=== PATIENT | male | born 1995 | race Two or more races ===

== ENCOUNTER 2023-06-29 00:44 | Inpatient (IN) | payer MEDICAID, OTHER ==
[~2023-06-29] VITALS: Ht 175.3 cm; Wt 81.9 kg
[2023-06-29 01:33] LABS: Basophils # (auto) 0 10 ^3/uL (0-0.2); Eosinophils # (auto) 0 10 ^3/uL (0-0.8); Nucleated Red Blood Cells % 0.1 %; Red Cell Distribution Width 13.3 % (11.8-14.3)
[2023-06-29 01:34] LABS: Basophils % (auto) 0.1 % (0.0-2.0); Hematocrit 52.3 % (41.0-53.0); Lymphocytes % (auto) 6.1 % (10.0-50.0); Mean Corpuscular Hemoglobin 30.4 pg (28.0-32.0); Mean Corpuscular Hgb Conc. 34.3 g/dL (32.0-36.0); Mean Corpuscular Volume 88.5 fL (80.0-100.0); Monocytes # (auto) 0.9 10 ^3/uL (0-1.3); Monocytes % (auto) 5.7 % (0.0-12.0); Neutrophils # (auto) 14.3 10 ^3/uL (1.6-8.6); Neutrophils % (auto) 88.1 % (37.0-80.0); Red Blood Cells 5.91 10^6/uL (4.5-5.90); White Blood Cell 16.2 10^3/uL (4.4-10.8)
[2023-06-29 01:50] LABS: Alanine Aminotransferase 101 U/L (7-40); Albumin 4.7 g/dL (3.2-4.8); Alkaline Phosphatase 98 U/L (46-116); Anion Gap 18 (5-15); Aspartate Aminotransferase 89 U/L (13-40); BUN/Creatinine Ratio 9.2 (10.0-20.0); Bilirubin, Total 1.5 mg/dL (0.2-1.0); Blood Urea Nitrogen 8 mg/dL (9-23); Carbon Dioxide 19 mmol/L (20-30); Chloride 101 mmol/L (98-107); Glucose 159 mg/dL (74-106); Lipase 442 U/L (12-53); Sodium 138 mmol/L (136-145); Total Protein 7.9 g/dL (5.7-8.2)
[2023-06-29] MEDS: DICYCLOMINE HCL (10MG/ML) 2 ML AMPULE IM ONE (03:38)
[2023-06-29] MEDS: SODIUM CHLORIDE 0.9% 1,000 ML IV ONE (05:09)
[2023-06-29] MEDS: ONDANSETRON HCL 4 MG/2 ML VIAL IV ONE (05:13)
[2023-06-29] MEDS: SODIUM CHLORIDE 0.9% 1,000 ML IV SCH ×2 (07:29→10:15)
[2023-06-29] MEDS: ONDANSETRON HCL 4 MG/2 ML VIAL IV PRN (07:34)
[2023-06-29] MEDS: cefTRIAXone 1GM/50ML D5W 50 ML IV SCH (07:35)
[2023-06-29] MEDS: MORPHINE SULFATE INJ 2 MG/ml SYRG IV PRN (07:35)
[2023-06-29 09:21] VITALS: PULSE 118; RESP 29; O2SAT 96
[2023-06-29] MEDS ORDERED: SODIUM CHLORIDE 0.9% 1,000 ML IV SCH (10:15)
[2023-06-29] MEDS ORDERED: chlordiazePOXIDE HCL 25 MG CAP PO PRN (10:15)
[2023-06-29] MEDS: LACTATED RINGER'S 1,000 ML IV SCH (11:19)
[2023-06-29] MEDS: HYDROmorphone HCL 2 MG/ML VL/or syr IV PRN (11:20)
[2023-06-29] MEDS: FOLIC ACID 1 MG, MAGNESIUM SULF SDV 50% 8 MEQ, MULTIPLE VITAMIN 10 ML, THIAMINE INJ 100... INJ SCH (11:41)
[2023-06-29 12:14] LABS: Urine Bacteria FEW /hpf (None Seen); Urine Blood Negative /uL (Negative); Urine Clarity Clear (Clear); Urine Color Yellow (Yellow); Urine Hyaline Cast FEW /lpf (0 - 2); Urine Mucus FEW (None Seen); Urine Protein, UAD 1+ (Negative); Urine Urobilinogen Normal (Negative); Urine WBC 4 /hpf (0 - 3); Urine pH 5.5 (5.0-8.0)
[2023-06-29 19:30] VITALS: PULSE 126; RESP 25; O2SAT 94
[2023-06-29] MEDS: dilTIAZem 25 MG/5 ML VIAL IV ONE (22:43)
[2023-06-29 23:15] VITALS: BP_SYST 132; BP_SYST 139; BP_DIAS 101; PULSE 131; PULSE 132; RESP 18; RESP 30; TEMP 97.6; TEMP 97.8; O2SAT 95; O2SAT 96
[2023-06-30] VITALS (7 sets, daily range): BP systolic 134–153; BP diastolic 87–103; PULSE 113–139; RESP 18–21; TEMP 37.4; O2SAT 92–100
[2023-06-30 05:22] LABS: Alanine Aminotransferase 88 U/L (7-40); Albumin 3.6 g/dL (3.2-4.8); Alkaline Phosphatase 100 U/L (46-116); Anion Gap 10 (5-15); Aspartate Aminotransferase 270 U/L (13-40); BUN/Creatinine Ratio 12.5 (10.0-20.0); Bilirubin, Total 9.6 mg/dL (0.2-1.0); Blood Urea Nitrogen 11 mg/dL (9-23); Carbon Dioxide 21 mmol/L (20-30); Chloride 100 mmol/L (98-107); Glucose 211 mg/dL (74-106); Potassium 4.8 mmol/L (3.5-5.1); Total Protein 6.3 g/dL (5.7-8.2)
[2023-06-30 05:25] LABS: Sodium 131 mmol/L (136-145)
[2023-06-30 05:31] LABS: Basophils # (auto) 0 10 ^3/uL (0-0.2); Basophils % (auto) 0.2 % (0.0-2.0); Eosinophils # (auto) 0 10 ^3/uL (0-0.8); Hematocrit 50.4 % (41.0-53.0); Hemoglobin 17.3 g/dL (13.5-17.5); Lymphocytes # (auto) 1.2 10 ^3/uL (0.4-5.4); Lymphocytes % (auto) 6.8 % (10.0-50.0); Mean Corpuscular Hemoglobin 30.7 pg (28.0-32.0); Mean Corpuscular Hgb Conc. 34.2 g/dL (32.0-36.0); Mean Corpuscular Volume 89.6 fL (80.0-100.0); Monocytes # (auto) 0.7 10 ^3/uL (0-1.3); Monocytes % (auto) 3.7 % (0.0-12.0); Neutrophils # (auto) 15.8 10 ^3/uL (1.6-8.6); Neutrophils % (auto) 89.3 % (37.0-80.0); Nucleated Red Blood Cells % 0.2 %; Red Blood Cells 5.62 10^6/uL (4.5-5.90); White Blood Cell 17.7 10^3/uL (4.4-10.8)
[2023-06-30 08:41] LABS: Hepatitis B Surface Antigen Negative (Negative)
[2023-06-30] MEDS: PANTOPRAZOLE 40 MG/10 ML VIAL INJ IV SCH (08:50)
[2023-06-30 08:59] LABS: Hepatitis B Surface Antigen Negative (Negative)
[2023-06-30 09:02] LABS: Hepatitis C Antibody Negative (Negative)
[2023-06-30 09:19] LABS: Hepatitis A Ab IgM Negative
[2023-06-30 09:20] LABS: Hepatitis B Core IgM Negative; Hepatitis C Antibody Negative (Negative)
[2023-06-30] MEDS: LACTATED RINGER'S 500 ML IV ONE (11:33)
[2023-06-30] MEDS: HYDROmorphone HCL 2 MG/ML VL/or syr IV ONE (11:39)
[2023-06-30] MEDS ORDERED: DEXL30CA6 PO (13:05)
[2023-06-30] MEDS: MEROPENEM 1GM IVPB 50 ML IV SCH (14:18)
[2023-06-30] MEDS: FOLIC ACID 1 MG, MAGNESIUM SULF SDV 50% 8 MEQ, MULTIPLE VITAMIN 10 ML, THIAMINE INJ 100... INJ SCH (15:31)
[2023-07-01] VITALS (7 sets, daily range): BP systolic 127–144; BP diastolic 80–97; PULSE 113–132; RESP 18; TEMP 98.1–99.9; O2SAT 90–94
[2023-07-01 06:58] LABS: Basophils # (auto) 0 10 ^3/uL (0-0.2); Basophils % (auto) 0.1 % (0.0-2.0); Eosinophils # (auto) 0 10 ^3/uL (0-0.8); Hematocrit 42.3 % (41.0-53.0); Hemoglobin 14.5 g/dL (13.5-17.5); Lymphocytes # (auto) 0.9 10 ^3/uL (0.4-5.4); Lymphocytes % (auto) 7.4 % (10.0-50.0); Mean Corpuscular Hemoglobin 30.6 pg (28.0-32.0); Mean Corpuscular Hgb Conc. 34.3 g/dL (32.0-36.0); Mean Corpuscular Volume 89.3 fL (80.0-100.0); Monocytes # (auto) 0.5 10 ^3/uL (0-1.3); Monocytes % (auto) 4.1 % (0.0-12.0); Neutrophils # (auto) 10.8 10 ^3/uL (1.6-8.6); Neutrophils % (auto) 88.4 % (37.0-80.0); Nucleated Red Blood Cells % 0.1 %; Red Blood Cells 4.74 10^6/uL (4.5-5.90); Red Cell Distribution Width 13.3 % (11.8-14.3); White Blood Cell 12.2 10^3/uL (4.4-10.8)
[2023-07-01 07:14] LABS: Alanine Aminotransferase 63 U/L (7-40); Albumin 3.3 g/dL (3.2-4.8); Alkaline Phosphatase 87 U/L (46-116); Anion Gap 6 (5-15); Aspartate Aminotransferase 147 U/L (13-40); Blood Urea Nitrogen 11 mg/dL (9-23); Calcium 7.5 mg/dL (8.7-10.4); Carbon Dioxide 26 mmol/L (20-30); Chloride 95 mmol/L (98-107); Glucose 190 mg/dL (74-106); Lipase 193 U/L (12-53); Sodium 127 mmol/L (136-145)
[2023-07-01 07:15] LABS: Bilirubin, Total 10.9 mg/dL (0.2-1.0); Total Protein 5.8 g/dL (5.7-8.2)
[2023-07-01 07:45] LABS: BUN/Creatinine Ratio 16.7 (10.0-20.0)
[2023-07-01] MEDS: HYDROmorphone HCL 2 MG/ML VL/or syr IV PRN (15:24)
[2023-07-02] VITALS (7 sets, daily range): BP systolic 141–144; BP diastolic 94–99; PULSE 94–121; RESP 18–20; TEMP 98–99.9; O2SAT 95–97
[2023-07-02 06:45] LABS: Prothrombin Time 10.5 sec (9.3-11.8)
[2023-07-02 06:48] LABS: Alanine Aminotransferase 50 U/L (7-40); Alkaline Phosphatase 89 U/L (46-116); Anion Gap 6 (5-15); BUN/Creatinine Ratio 18.4 (10.0-20.0); Blood Urea Nitrogen 9 mg/dL (9-23); Calcium 7.5 mg/dL (8.7-10.4); Carbon Dioxide 26 mmol/L (20-30); Chloride 97 mmol/L (98-107); Glucose 137 mg/dL (74-106); Potassium 3.6 mmol/L (3.5-5.1); Sodium 129 mmol/L (136-145)
[2023-07-02 06:49] LABS: Albumin 3.1 g/dL (3.2-4.8); Aspartate Aminotransferase 100 U/L (13-40); Bilirubin, Total 7.3 mg/dL (0.2-1.0); Total Protein 5.7 g/dL (5.7-8.2)
[2023-07-02 07:14] LABS: Hematocrit 38.1 % (41.0-53.0); Hemoglobin 13.1 g/dL (13.5-17.5); Mean Corpuscular Hemoglobin 30.8 pg (28.0-32.0); Mean Corpuscular Hgb Conc. 34.2 g/dL (32.0-36.0); Mean Corpuscular Volume 89.9 fL (80.0-100.0); Red Blood Cells 4.24 10^6/uL (4.5-5.90); Red Cell Distribution Width 13.1 % (11.8-14.3); White Blood Cell 7.6 10^3/uL (4.4-10.8)
[2023-07-02 07:17] LABS: Basophils % (manual) 0 (0.0-2.0); Blast Cells 0; Eosinophils % (manual) 0 (0-7); Metamyelocytes % 0; Myelocytes % 0; Promyelocytes % 0; Reactive Lymphocytes 0
[2023-07-02 08:03] LABS: Band Neutrophils % (manual) 10; Lymphocytes % (manual) 16 (10.0-50.0); Monocytes % (manual) 8 (0-12); Platelet Estimate Decreased; RBC Morphology Normal
[2023-07-02] MEDS: METOPROLOL TARTRATE 25 MG TAB PO SCH (22:25)
[2023-07-03 05:00] VITALS: BP 139/87; PULSE 116; RESP 20; TEMP 98.3; O2SAT 90
[2023-07-03 07:30] LABS: Amphetamine Screen, Urine Neg (NEGATIVE)
[2023-07-03 07:31] LABS: Barbiturate Scree,Urine Neg (NEGATIVE); Benzodiazephine Screen, Urine Neg (NEGATIVE); Cannabinoid Screen, Urine Neg (NEGATIVE); Cocaine Screen, Urine Neg (NEGATIVE); Opiate Scree,Urine Neg (NEGATIVE); Phencyclidine Screen, Urine Neg (NEGATIVE)
[2023-07-03 08:00] VITALS: BP 142/97; PULSE 110; PULSE 116; RESP 17; TEMP 99; O2SAT 96
[2023-07-03 08:49] VITALS: BP 142/97; PULSE 116; RESP 17; TEMP 99; O2SAT 96
[2023-07-03] MEDS ORDERED: LORazepam 2MG/ML-1ML VIAL IV PRN (13:00)
[2023-07-03 13:03] VITALS: BP 144/98; PULSE 102; RESP 17; TEMP 99.1; O2SAT 98
[2023-07-03] MEDS: LORazepam 2MG/ML-1ML VIAL IV ONE (13:19)
[2023-07-03] MEDS: LORazepam 2MG/ML-1ML VIAL ONE (13:29)
[2023-07-03] MEDS: GABAPENTIN 300 MG CAP PO SCH (13:57)
[2023-07-03] MEDS: LORazepam 2MG/ML-1ML VIAL IM ONE (14:22)
[2023-07-03 14:48] LABS: Amphetamine Screen, Urine Neg (NEGATIVE); Barbiturate Scree,Urine Neg (NEGATIVE); Benzodiazephine Screen, Urine Neg (NEGATIVE); Cannabinoid Screen, Urine Neg (NEGATIVE); Cocaine Screen, Urine Neg (NEGATIVE); Opiate Scree,Urine Neg (NEGATIVE); Phencyclidine Screen, Urine Neg (NEGATIVE)
[2023-07-03 16:53] VITALS: BP 125/84; PULSE 99; RESP 18; TEMP 98.9; O2SAT 98
[2023-07-03] MEDS: LORazepam 2MG/ML-1ML VIAL IM PRN (18:37)
[2023-07-03] MEDS: HALOPERIDOL LACTATE 5 MG/ML INJ VIAL IM ONE (19:15)
[2023-07-03 20:00] VITALS: BP 130/90; PULSE 118; RESP 20; TEMP 98.7; O2SAT 97
[2023-07-03] MEDS: LACTULOSE 20Gm/30ML SOLN PO SCH (20:08)
[2023-07-04] VITALS (7 sets, daily range): BP systolic 113–143; BP diastolic 66–90; PULSE 52–119; RESP 17–20; TEMP 37.1; O2SAT 96–98
[2023-07-04 07:32] LABS: Hematocrit 37.8 % (41.0-53.0); Hemoglobin 12.8 g/dL (13.5-17.5); Mean Corpuscular Hemoglobin 30.4 pg (28.0-32.0); Mean Corpuscular Hgb Conc. 33.8 g/dL (32.0-36.0); Mean Corpuscular Volume 90.1 fL (80.0-100.0); Red Blood Cells 4.19 10^6/uL (4.5-5.90); Red Cell Distribution Width 13.7 % (11.8-14.3); White Blood Cell 9.1 10^3/uL (4.4-10.8)
[2023-07-04 08:08] LABS: Anion Gap 4 (5-15); Carbon Dioxide 29 mmol/L (20-30); Chloride 100 mmol/L (98-107); Sodium 133 mmol/L (136-145)
[2023-07-04 08:09] LABS: Calcium 8.6 mg/dL (8.5-10.1)
[2023-07-04 08:12] LABS: Basophils % (manual) 0 (0.0-2.0); Blast Cells 0; Metamyelocytes % 0; Myelocytes % 0; Promyelocytes % 0; Reactive Lymphocytes 0
[2023-07-04 08:14] LABS: BUN/Creatinine Ratio 8.8 (10.0-20.0); Blood Urea Nitrogen 5 mg/dL (9-23); Glucose 131 mg/dL (74-106)
[2023-07-04 10:15] LABS: Band Neutrophils % (manual) 9; Eosinophils % (manual) 1 (0-7); Lymphocytes % (manual) 12 (10.0-50.0); Monocytes % (manual) 14 (0-12)
[2023-07-04 10:16] LABS: Platelet Estimate Adequate; Polychromasia Slight
[2023-07-04 10:17] LABS: Tear Drop Cells FEW
[2023-07-05 07:21] LABS: Alanine Aminotransferase 64 U/L (7-40); Alkaline Phosphatase 154 U/L (46-116); Anion Gap 4 (5-15); Blood Urea Nitrogen 5 mg/dL (9-23); Calcium 7.8 mg/dL (8.7-10.4); Carbon Dioxide 28 mmol/L (20-30); Chloride 102 mmol/L (98-107); Glucose 131 mg/dL (74-106); Lipase 42 U/L (12-53); Potassium 2.8 mmol/L (3.5-5.1); Sodium 134 mmol/L (136-145)
[2023-07-05 07:22] LABS: Albumin 3.2 g/dL (3.2-4.8); Aspartate Aminotransferase 67 U/L (13-40)
[2023-07-05 07:23] LABS: Bilirubin, Total 2.1 mg/dL (0.2-1.0); Total Protein 5.7 g/dL (5.7-8.2)
[2023-07-05 08:00] VITALS: BP 125/90; PULSE 101; PULSE 111; PULSE 96; RESP 17; RESP 18; TEMP 98.6; O2SAT 96
[2023-07-05 09:00] VITALS: BP 156/74; PULSE 112; RESP 20; TEMP 100.3; O2SAT 97
[2023-07-05] MEDS: ACETAMINOPHEN 325 MG TAB PO PRN (09:59)
[2023-07-05 13:00] VITALS: BP 121/72; PULSE 96; RESP 20; TEMP 98.9; O2SAT 94
[2023-07-05 17:00] VITALS: BP 130/85; PULSE 97; RESP 20; TEMP 99.7; O2SAT 98
[2023-07-05] MEDS: SOD CHL 0.9%/ KCL 40MEQ 1,000 ML IV ONE (17:15)
[2023-07-05] MEDS: POTASSIUM EFFERVESENT TAB 25 MEQ PO ONE (17:16)
[2023-07-05] MEDS: MORPHINE SULFATE INJ 2 MG/ml SYRG IV PRN (17:28)
[2023-07-05 20:00] VITALS: BP 128/96; PULSE 111; PULSE 98; PULSE 99; RESP 17; RESP 20; TEMP 98.6; O2SAT 100
[2023-07-06] VITALS (9 sets, daily range): BP systolic 120–128; BP diastolic 73–82; PULSE 20–113; RESP 17–22; TEMP 97.7–100.3; O2SAT 92–99
[2023-07-06 06:23] LABS: Basophils # (auto) 0 10 ^3/uL (0-0.2); Basophils % (auto) 0.1 % (0.0-2.0); Eosinophils # (auto) 0.1 10 ^3/uL (0-0.8); Eosinophils % (auto) 0.6 % (0.0-7.0); Hematocrit 33.3 % (41.0-53.0); Hemoglobin 11.1 g/dL (13.5-17.5); Lymphocytes # (auto) 1.2 10 ^3/uL (0.4-5.4); Lymphocytes % (auto) 6.9 % (10.0-50.0); Mean Corpuscular Hemoglobin 30.4 pg (28.0-32.0); Mean Corpuscular Hgb Conc. 33.5 g/dL (32.0-36.0); Mean Corpuscular Volume 90.7 fL (80.0-100.0); Monocytes # (auto) 1.5 10 ^3/uL (0-1.3); Monocytes % (auto) 8.5 % (0.0-12.0); Neutrophils # (auto) 14.2 10 ^3/uL (1.6-8.6); Neutrophils % (auto) 83.9 % (37.0-80.0); Nucleated Red Blood Cells % 0.1 %; Red Blood Cells 3.67 10^6/uL (4.5-5.90); Red Cell Distribution Width 13.8 % (11.8-14.3)
[2023-07-06 06:42] LABS: Alanine Aminotransferase 78 U/L (7-40); Albumin 3.3 g/dL (3.2-4.8); Alkaline Phosphatase 165 U/L (46-116); Anion Gap 6 (5-15); Aspartate Aminotransferase 80 U/L (13-40); Calcium 8.4 mg/dL (8.5-10.1); Carbon Dioxide 28 mmol/L (20-30); Chloride 101 mmol/L (98-107); Glucose 123 mg/dL (74-106); Potassium 3.4 mmol/L (3.5-5.1); Sodium 135 mmol/L (136-145)
[2023-07-06 06:43] LABS: Bilirubin, Total 1.9 mg/dL (0.2-1.0); Total Protein 5.7 g/dL (5.7-8.2)
[2023-07-06 06:46] LABS: BUN/Creatinine Ratio 8.1 (10.0-20.0); Blood Urea Nitrogen < 5 mg/dL (9-23)
[2023-07-06] MEDS: HYDROcodone-ACET 5/325MG TAB PO PRN (10:38)
[2023-07-06] MEDS ORDERED: VANCOMYCIN PER PHARMACY 0 MG IV SCH (16:15)
[2023-07-06] MEDS: LEVALBUTEROL HCL 1.25 MG/3 ML NEB NEB SCH (18:00)
[2023-07-06] MEDS: IPRATROPIUM BROM 0.5 MG/2.5ML INH SOL NEB SCH (18:00)
[2023-07-06] MEDS: VANCOMYCIN 1GM/200ML 200 ML IV SCH (18:42)
[2023-07-06] MEDS: KETOROLAC TROMETH 30 MG/ML 1ML VIAL IV ONE (18:42)
[2023-07-07] VITALS (12 sets, daily range): BP systolic 109–135; BP diastolic 64–91; PULSE 95–116; RESP 17–24; TEMP 94.6–99.6; O2SAT 95–100
[2023-07-07 05:51] LABS: Alanine Aminotransferase 62 U/L (7-40); Albumin 3.1 g/dL (3.2-4.8); Alkaline Phosphatase 140 U/L (46-116); Anion Gap 5 (5-15); Aspartate Aminotransferase 45 U/L (13-40); BUN/Creatinine Ratio 13.5 (10.0-20.0); Bilirubin, Total 1.7 mg/dL (0.2-1.0); Blood Urea Nitrogen 7 mg/dL (9-23); Calcium 7.8 mg/dL (8.7-10.4); Carbon Dioxide 28 mmol/L (20-30); Chloride 103 mmol/L (98-107); Glucose 128 mg/dL (74-106); Lipase 55 U/L (12-53); Sodium 136 mmol/L (136-145); Total Protein 5.5 g/dL (5.7-8.2)
[2023-07-07 05:52] LABS: Basophils # (auto) 0 10 ^3/uL (0-0.2); Basophils % (auto) 0.2 % (0.0-2.0); Eosinophils # (auto) 0.2 10 ^3/uL (0-0.8); Hematocrit 32.3 % (41.0-53.0); Hemoglobin 10.9 g/dL (13.5-17.5); Lymphocytes # (auto) 1.5 10 ^3/uL (0.4-5.4); Lymphocytes % (auto) 9.1 % (10.0-50.0); Mean Corpuscular Hemoglobin 30.5 pg (28.0-32.0); Mean Corpuscular Hgb Conc. 33.8 g/dL (32.0-36.0); Mean Corpuscular Volume 90.4 fL (80.0-100.0); Monocytes # (auto) 1.2 10 ^3/uL (0-1.3); Monocytes % (auto) 7.3 % (0.0-12.0); Neutrophils # (auto) 13.1 10 ^3/uL (1.6-8.6); Neutrophils % (auto) 82.4 % (37.0-80.0); Nucleated Red Blood Cells % 0.2 %; Red Blood Cells 3.58 10^6/uL (4.5-5.90); Red Cell Distribution Width 13.8 % (11.8-14.3)
[2023-07-08] VITALS (15 sets, daily range): BP systolic 99–130; BP diastolic 58–78; PULSE 96–117; RESP 16–20; TEMP 98.7–100; O2SAT 90–100
[2023-07-08 05:39] LABS: Basophils # (auto) 0 10 ^3/uL (0-0.2); Basophils % (auto) 0.2 % (0.0-2.0); Eosinophils # (auto) 0.1 10 ^3/uL (0-0.8); Eosinophils % (auto) 0.9 % (0.0-7.0); Hematocrit 31.9 % (41.0-53.0); Hemoglobin 10.8 g/dL (13.5-17.5); Lymphocytes # (auto) 1.2 10 ^3/uL (0.4-5.4); Lymphocytes % (auto) 8.2 % (10.0-50.0); Mean Corpuscular Hemoglobin 30.4 pg (28.0-32.0); Mean Corpuscular Hgb Conc. 33.9 g/dL (32.0-36.0); Mean Corpuscular Volume 89.7 fL (80.0-100.0); Monocytes # (auto) 1.1 10 ^3/uL (0-1.3); Monocytes % (auto) 7.5 % (0.0-12.0); Neutrophils # (auto) 12.5 10 ^3/uL (1.6-8.6); Neutrophils % (auto) 83.2 % (37.0-80.0); Red Blood Cells 3.56 10^6/uL (4.5-5.90); Red Cell Distribution Width 13.7 % (11.8-14.3)
[2023-07-08 06:01] LABS: Chloride 100 mmol/L (98-107); Potassium 4.5 mmol/L (3.5-5.1); Sodium 137 mmol/L (136-145)
[2023-07-08 06:02] LABS: Anion Gap 6 (5-15); Calcium 8.7 mg/dL (8.5-10.1); Carbon Dioxide 31 mmol/L (20-30)
[2023-07-08 06:07] LABS: BUN/Creatinine Ratio 11.9 (10.0-20.0); Blood Urea Nitrogen 7 mg/dL (9-23); Glucose 122 mg/dL (74-106)
[2023-07-08] MEDS: VANCOMYCIN 1GM/200ML 200 ML IV SCH (10:57)
[2023-07-08] MEDS: THIAMINE HCL 100 MG TAB PO SCH (12:54)
[2023-07-08] MEDS: B-COMPLEX W/ C & FOLIC ACID(NEPHROVITE TAB) PO SCH (12:54)
[2023-07-09] VITALS (14 sets, daily range): BP systolic 113–123; BP diastolic 68–81; PULSE 89–106; RESP 17–19; TEMP 98.3–99.7; O2SAT 90–100
[2023-07-09 07:05] LABS: Basophils # (auto) 0 10 ^3/uL (0-0.2); Basophils % (auto) 0.2 % (0.0-2.0); Eosinophils # (auto) 0.1 10 ^3/uL (0-0.8); Hemoglobin 10.6 g/dL (13.5-17.5); Monocytes # (auto) 0.9 10 ^3/uL (0-1.3)
[2023-07-09 07:08] LABS: Eosinophils % (auto) 0.9 % (0.0-7.0); Hematocrit 31.2 % (41.0-53.0); Lymphocytes # (auto) 1.3 10 ^3/uL (0.4-5.4); Mean Corpuscular Hemoglobin 30.6 pg (28.0-32.0); Mean Corpuscular Hgb Conc. 33.9 g/dL (32.0-36.0); Mean Corpuscular Volume 90.2 fL (80.0-100.0); Monocytes % (auto) 7.1 % (0.0-12.0); Neutrophils # (auto) 10.8 10 ^3/uL (1.6-8.6); Neutrophils % (auto) 81.8 % (37.0-80.0); Red Blood Cells 3.46 10^6/uL (4.5-5.90); Red Cell Distribution Width 13.7 % (11.8-14.3); White Blood Cell 13.2 10^3/uL (4.4-10.8)
[2023-07-09 07:22] LABS: Anion Gap 7 (5-15); Calcium 8.4 mg/dL (8.7-10.4); Carbon Dioxide 27 mmol/L (20-30); Chloride 101 mmol/L (98-107); Potassium 3.9 mmol/L (3.5-5.1); Sodium 135 mmol/L (136-145)
[2023-07-09 07:27] LABS: Blood Urea Nitrogen 6 mg/dL (9-23); Glucose 126 mg/dL (74-106)
[2023-07-09] MEDS: SODIUM CHLORIDE 0.9% 1,000 ML IV SCH (15:15)
[2023-07-09] MEDS ORDERED: IOHEXOL 300 MG/ML 100ML BOTTLE IJ ONE (17:42)
[2023-07-10] VITALS (14 sets, daily range): BP systolic 109–118; BP diastolic 69–75; PULSE 94–103; RESP 16–18; TEMP 98.1–100.5; O2SAT 92–99
[2023-07-10] MEDS: VANCOMYCIN 750mg/150ml 150 ML IV SCH (00:31)
[2023-07-10 06:47] LABS: Basophils # (auto) 0 10 ^3/uL (0-0.2); Basophils % (auto) 0.3 % (0.0-2.0); Eosinophils # (auto) 0.1 10 ^3/uL (0-0.8); Eosinophils % (auto) 0.9 % (0.0-7.0); Monocytes # (auto) 0.8 10 ^3/uL (0-1.3)
[2023-07-10 06:50] LABS: Hematocrit 32.5 % (41.0-53.0); Hemoglobin 10.8 g/dL (13.5-17.5); Lymphocytes # (auto) 1.4 10 ^3/uL (0.4-5.4); Mean Corpuscular Hemoglobin 29.8 pg (28.0-32.0); Mean Corpuscular Hgb Conc. 33.1 g/dL (32.0-36.0); Mean Corpuscular Volume 90.1 fL (80.0-100.0); Neutrophils # (auto) 10.4 10 ^3/uL (1.6-8.6); Neutrophils % (auto) 81.8 % (37.0-80.0); Red Blood Cells 3.61 10^6/uL (4.5-5.90); Red Cell Distribution Width 13.6 % (11.8-14.3); White Blood Cell 12.7 10^3/uL (4.4-10.8)
[2023-07-11] VITALS (12 sets, daily range): BP systolic 103–118; BP diastolic 64–81; PULSE 85–101; RESP 16–20; TEMP 97.8–99.5; O2SAT 93–100
[2023-07-11 06:32] LABS: Eosinophils # (auto) 0.1 10 ^3/uL (0-0.8); Monocytes # (auto) 0.7 10 ^3/uL (0-1.3)
[2023-07-11 06:34] LABS: Basophils # (auto) 0.1 10 ^3/uL (0-0.2); Basophils % (auto) 0.7 % (0.0-2.0); Hematocrit 32.2 % (41.0-53.0); Hemoglobin 10.6 g/dL (13.5-17.5); Lymphocytes # (auto) 1.1 10 ^3/uL (0.4-5.4); Lymphocytes % (auto) 9.4 % (10.0-50.0); Mean Corpuscular Hemoglobin 29.5 pg (28.0-32.0); Mean Corpuscular Hgb Conc. 32.9 g/dL (32.0-36.0); Mean Corpuscular Volume 89.4 fL (80.0-100.0); Monocytes % (auto) 5.6 % (0.0-12.0); Neutrophils # (auto) 9.9 10 ^3/uL (1.6-8.6); Neutrophils % (auto) 83.3 % (37.0-80.0); Nucleated Red Blood Cells % 0.1 %; Red Cell Distribution Width 13.7 % (11.8-14.3); White Blood Cell 11.9 10^3/uL (4.4-10.8)
[2023-07-11 06:49] LABS: Alanine Aminotransferase 43 U/L (7-40); Albumin 3.6 g/dL (3.2-4.8); Alkaline Phosphatase 141 U/L (46-116); Anion Gap 7 (5-15); Aspartate Aminotransferase 36 U/L (13-40); BUN/Creatinine Ratio 11.7 (10.0-20.0); Bilirubin, Total 1.2 mg/dL (0.2-1.0); Blood Urea Nitrogen 7 mg/dL (9-23); Calcium 8.8 mg/dL (8.7-10.4); Carbon Dioxide 26 mmol/L (20-30); Chloride 102 mmol/L (98-107); Glucose 115 mg/dL (74-106); Lipase 46 U/L (12-53); Potassium 4.2 mmol/L (3.5-5.1); Sodium 135 mmol/L (136-145); Total Protein 6.9 g/dL (5.7-8.2)
[2023-07-11] MEDS: FLORASTOR (S. BOULARDII) 250 MG CAP PO SCH (13:03)
[2023-07-12] VITALS (11 sets, daily range): BP systolic 111–131; BP diastolic 62–77; PULSE 70–94; RESP 14–20; TEMP 98.5–99.8; O2SAT 94–100
[2023-07-12 06:11] LABS: Basophils # (auto) 0.1 10 ^3/uL (0-0.2); Basophils % (auto) 0.5 % (0.0-2.0); Eosinophils # (auto) 0.1 10 ^3/uL (0-0.8); Eosinophils % (auto) 0.8 % (0.0-7.0); Hemoglobin 10.4 g/dL (13.5-17.5); Lymphocytes # (auto) 1.2 10 ^3/uL (0.4-5.4); White Blood Cell 11.9 10^3/uL (4.4-10.8)
[2023-07-12 06:15] LABS: Chloride 103 mmol/L (98-107); Potassium 4.4 mmol/L (3.5-5.1); Sodium 135 mmol/L (136-145)
[2023-07-12 06:16] LABS: Anion Gap 7 (5-15); Calcium 8.8 mg/dL (8.7-10.4); Carbon Dioxide 25 mmol/L (20-30); Hematocrit 31.1 % (41.0-53.0); Lymphocytes % (auto) 10.1 % (10.0-50.0); Mean Corpuscular Hgb Conc. 33.3 g/dL (32.0-36.0); Mean Corpuscular Volume 90.1 fL (80.0-100.0); Monocytes # (auto) 0.6 10 ^3/uL (0-1.3); Monocytes % (auto) 5.2 % (0.0-12.0); Neutrophils % (auto) 83.4 % (37.0-80.0); Nucleated Red Blood Cells % 0.1 %; Red Blood Cells 3.45 10^6/uL (4.5-5.90); Red Cell Distribution Width 13.5 % (11.8-14.3)
[2023-07-12 06:21] LABS: BUN/Creatinine Ratio 13.6 (10.0-20.0); Blood Urea Nitrogen 8 mg/dL (9-23); Glucose 119 mg/dL (74-106)
[2023-07-12] MEDS ORDERED: DOXY-286 PO (14:05)
== END 2023-07-12 16:40 | disposition home or self-care (01) | DRG 720 ==
LOC: ER 00:44 → EDBD 00:44 → OVERFLOW 06:54 → WEST WING 22:55 → TELE-WESTW 07-01 23:51 → TELE-EAST 07-04 20:18 → EAST 07-11 18:32
PROVIDERS: ADMIT Nurse Practitioner; ATTEND Nurse Practitioner Acute Care
DX: A41.9 Sepsis, unspecified organism (principal); J96.01 Acute respiratory failure with hypoxia; J15.69 Pneumonia due to other Gram-negative bacteria; K85.20 Alcohol induced acute pancreatitis without necrosis or infection; F10.231 Alcohol dependence with withdrawal delirium; K70.10 Alcoholic hepatitis without ascites; E87.1 Hypo-osmolality and hyponatremia; N13.30 Unspecified hydronephrosis; L03.113 Cellulitis of right upper limb; R03.0 Elevated blood-pressure reading, without diagnosis of hypertension; Y95 Nosocomial condition; F10.20 Alcohol dependence, uncomplicated; K76.0 Fatty (change of) liver, not elsewhere classified
CPT/HCPCS: 36415; 71045; 74176; 74177; 74181; 76604; 76705; 80048; 80053; 80074; 80202; 80307; 80320; 81001; 82140; 82565; 83690; 84484; 85007; 85025; 85027; 85610; 86803; 87040; 87340; 93005; 94640; C9113; G0378; J1885; J2185; J2405

== ENCOUNTER 2024-11-16 18:57 | Inpatient (IN) | payer MEDICAID, OTHER ==
[~2024-11-16] VITALS: Ht 172.7 cm; Wt 80.5 kg
[~2024-11-16 18:57] MED LIST: DEXL30CA6 PO; DOXY-286 PO
--- NOTE | 2024-11-16 19:05 | ED.PDOC ---
GI ASSESSMENT HPI Comments 29-year-old male came to ER for abdominal pain. Patient has been binge drinking alcohol for the past 3 days. Currently complaining of epigastric abdominal pain with the episodes of nausea and vomiting patient. Patient does have history of pancreatitis Chief Complaint: Abdominal pain Time Seen by MD: 19:04 Reviewed Notes: Gas Leak Tester Notes Allergies: Coded Allergies: NO KNOWN ALLERGIES (Unverified , 06/29/23) Home Meds Active Scripts Doxycycline Hyclate (DOXYCYCLINE HYCLATE) 100 Mg Tab, 1 TAB PO BID for 7 Days, #14 TAB Prov:JANIE HARKINS BRANCH MAKER 07/12/23 Reported Medications Dexlansoprazole (Dexlansoprazole) 30 Mg Cap, 30 MG PO PRN, CAP 06/30/23 Information Source: Patient, Emergency Med Personnel Mode of Arrival: EMS Timing: Days Duration: Intermittent Prehospital treatment: None Quality: Cramping, Sharp Vomitus: Watery Stool: Normal Severity: Moderate Recent: Ingestion of ETOH Recent Hx of: None Pain Location: Epigastric Modifying Factors: Nothing Associated sign and symptoms: Nausea, Vomiting, Abdominal Pain Past Medical History Past Medical History (Other): Pancreatitis Surgical History: Denies all surgeries Family History Family History: Reviewed,noncontributory to illness Social History Smoker: Non-Smoker Alcohol: Heavy Drugs: Denies Drug Use Lives In: Home Constitutional: denies: chills, diaphoresis, fatigue, fever, malaise, sweats, weakness, others EENTM: denies: blurred vision, double vision, ear bleeding, ear discharge, ear drainage, ear pain, ear ringing, eye pain, eye redness, hearing loss, mouth pain, mouth swelling, nasal discharge, nose bleeding, nose congestion, nose pain, photophobia, tearing, throat pain, throat swelling, voice changes, others Respiratory: denies: cough, hemoptysis, orthopnea, SOB at rest, shortness of breath, SOB with excertion, stridor, wheezing, others Cardiovascular: denies: chest pain, dizzy spells, diaphoresis, Dyspnea on exertion, edema, irregular heart beat, left arm pain, lightheadedness, palpitations, PND, syncope, others Gastrointestinal: reports: abdominal pain, nausea, vomiting; denies: abdomen distended, blood streaked bowels, constipated, diarrhea, dysphagia, difficulty swallowing, hematemesis, melena, poor appetite, poor fluid intake, rectal bleeding, rectal pain, others Genitourinary: denies: burning, dysuria, flank pain, frequency, hematuria, incontinence, penile discharge, penile sore, pain, testicle pain, testicle swelling, urgency, others Neurological: denies: dizziness, fainting, headache, left sided numbness, left sided weakness, numbness, paresthesia, pre-existing deficit, right sided numbness, right sided weakness, seizure, speech problems, tingling, tremors, weakness, others Musculoskeletal: denies: back pain, gout, joint pain, joint swelling, muscle pain, muscle stiffness, neck pain, others Integumetry: denies: bruises, change in color, change in hair/nails, dryness, laceration, lesions, lumps, rash, wounds, others Allergic/Immunocompromised: denies: Difficulty Healing, Frequent Infections, Hives, Itching, others Hematologic/Lymphatic: denies: anemia, blood clots, easy bleeding, easy brui sing, swollen glands, others Endocrine: denies: excessive hunger, excessive sweating, excessive thirst, ex cessive urination, flushing, intolerance to cold, intolerance to heat, unexplained weight gain, unexplained weight loss, others Psychiatric: denies: anxiety, bipolar disorder, depression, hopeless, panic disorder, schizophrenia, sleepless, suicidal, others Physical Exam General Appearance: No Apparent Distress, Normal HEENT: Normal ENT Inspection, Pharynx Normal, TMs Normal Neck: Full Range of Motion, Non-Tender, Normal, Normal Inspection Respiratory: Chest Non-Tender, Lungs Clear, No Accessory Muscle Use, No Res piratory Distress, Normal Breath Sounds Cardiovascular: No Edema, No JVD, No Murmur, No Gallop, Normal Peripheral Pulses, Regular Rate/Rhythm Breast Exam: Deferred Gastrointestinal: No Organomegaly, Non Tender, No Pulsatile Mass, Normal Bowel Sounds, Soft Genitalia: Deferred Pelvic: Deferred Rectal: Deferred Extremities: No calf tenderness, Normal capillary refill, Normal inspection, Normal range of motion, Non-tender, No pedal edema Musculoskeletal : Apperance: Normal Neurologic: Alert, account general manager II-XII nml as Tested, No Motor Deficits, Normal Affect, Normal Mood, No Sensory Deficits Cerebellar Function: Normal Reflexes: Normal Skin: Dry, Normal Color, Warm Lymphatic: No Adenopathy Was a procedure done? Was a procedure done?: No GI differential Dx Differential Diagnosis: Diverticular disease, Gastritis/PUD, Gastroenteritis, Hepatitis, Pancreatitis, UTI, Urolithiasis, Food Poisoning Time of 1ST Reevaluation: 19:02 Reevaluation 1ST: Unchanged Patient Education/Counseling: Diagnosis, Treatment Family Education/Counseling: No Family Present SEPSIS Sepsis Screen Physician Orders Sodium Chloride 0.9% (11/16/24 19:15) Lipase (11/16/24 19:03) Blood Alcohol (11/16/24 19:03) Complete Blood Count (11/16/24 19:03) Lactic Acid W/ Reflex Order (11/16/24 19:07) Electrocardigram (11/16/24 19:07) Urinalysis (11/16/24 19:07) Troponin-I Hs (11/16/24 19:07) Magnesium (11/16/24 19:03) Critical Care Note Critical Care Time?: No Stability Stability form required: No Heart Score Heart Score: Heart Score Response (Comments) Value History N/A 0 EKG N/A 0 Age N/A 0 Risk Factors N/A 0 Troponin N/A 0 Total 0 I personally scribed for OLIVERIO NG PAC (Played) on 11/16/24 at 19:05. Electronically submitted by Justin Hardin ([employer]). I personally scribed for OLIVERIO NG PAC (Played) on 11/16/24 at 19:43. Electronically submitted by Justin Hardin ([email or web address]). OLIVERIO NG PAC Nov 16, 2024 19:05
[2024-11-16] MEDS ORDERED: KETOROLAC TROMETH 30 MG/ML 1ML VIAL IV ONE (19:15)
--- NOTE | 2024-11-16 20:02 | ED.PDOC ---
GI ASSESSMENT HPI Comments 29y F who presents to the ED via EMS for chief complaint of abdominal pain. - EMS states pt states he has been having epigastric abdominal pain radiating to the R side of his chest since 1700 this afternoon - EMS arrived on scene and pt had stable vitals and pt complained of nausea pt was given 4 mg Zofran and pt was brought to the ED for further evaluation - EMS states pt spouse states pt has been drinking heavy since the past 4 days - pt otherwise states he has history of ETOH abuse and pancreatitis - pt otherwise denies any other symptoms at this time past medical history: pancreatitis, ETOH abuse past surgical history: denies allergies: denies medications: denies social history: denies tobacco use, endorses heavy ETOH use, denies drug use Vasquez HPI: Poor Historian. Patient emesis bag shows vomit content nonbilious nonbloody. Past Medical History: Past Surgical History: REVIEW OF SYSTEMS: CONSTITUTIONAL: Denies acute: fever, diaphoresis, chills, generalized weakness. HEAD: Denies acute: headache, photophobia Eyes: Denies acute: Double vision, vision loss, eye pain, eye discharge. EARS: Denies acute: tinnitus, hearing loss, ear discharge, ear pain, THROAT: Denies acute: sore throat, swelling, difficulty swallowing , pain with swallowing, change in voice. NECK: Denies acute: neck pain, neck swelling, stiff neck. HEART: Denies acute : chest pain, palpitations, LUNGS: Denies acute: SOB, wheezing, cough, hemoptysis ABDOMEN: Denies acute: , diarrhea, melena , hematemesis, hematochezia SKIN: Denies acute: rash, redness, lesions, itchiness. EXTREMITIES: Denies acute: calf pain, numbness, tingling, weakness, denies pain in extremity. Denies acute: Low back pain. Neuro: Denies acute: focal neurological deficit, motor or sensory focal neurological deficit, tremors, seizure like activity, confusion, dizziness, change in mental status, loss of bowel or bladder function, cauda equina like symptoms. : Denies acute: dysuria, hematuria, flank pain, increase in urinary frequency. PSYCH: Denies acute: hallucination, suicidal ideation, homicidal ideation. PHYSICAL EXAM: General: -----[id number]---acute distress, awake and alert. Head: normocephalic, atraumatic. Neck: supple, trachea is midline, no swelling. Throat: Normal phonation. Eyes:, no erythema, no purulent discharge, no proptosis, no icterus. Heart: regular rate, regular rhythm, no significant murmur appreciated. Lungs: no apparent respiratory distress, Able to speak in full sentences. No wheezing, no rhonchi, no crackles. No stridors Clear to auscultation bilaterally. Abdomen: Right upper quadrant and epigastric tender to palpation, non distended, soft, no guarding, no rebound, + bowel sounds. Neuro: Awake, Alert, oriented to name, self, situation, follows commands GCS=15. Speech is normal. Skin: no petechia, no purpura, no cyanosis, non-pale, not jaundice. Lower extremities: --no - Pitting edema no deformity, no focal swelling, no calf TTP. Makes eye contact. moves all four extremities. Face: no apparent facial droop. ED COURSE: DISCLAIMER: This medical document was created using an electronic medical record system with voice recognition software and computerized dictation system. Although this document has been carefully reviewed, there might still be some phonetic and typographical errors. Occasional wrong-word or "sound-alike" substitutions may have occurred due to the inherent limitations of voice recognition software. These areas are purely typographical due to imperfections of the software programs and do not reflect any compromise in the patient's medical care. Please read the chart carefully and recognize, using context, where these substitutions have occurred. 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, Medications, Allergies Allergies: Coded Allergies: NO KNOWN ALLERGIES (Unverified , 06/29/23) Home Meds Active Scripts Doxycycline Hyclate (DOXYCYCLINE HYCLATE) 100 Mg Tab, 1 TAB PO BID for 7 Days, #14 TAB Prov:JANIE HARKINS STONE DRILLER HELPER 07/12/23 Reported Medications Dexlansoprazole (Dexlansoprazole) 30 Mg Cap, 30 MG PO PRN, CAP 06/30/23 Information Source: Patient, Emergency Med Personnel Mode of Arrival: EMS Past Medical History Past Medical History (Other): Pancreatitis Surgical History: Denies all surgeries Family History Family History: Reviewed,noncontributory to illness Social History Smoker: Non-Smoker Alcohol: Heavy Drugs: Denies Drug Use Lives In: Home Was a procedure done? Was a procedure done?: No X-Ray, Labs, Meds, VS Vital Signs Date Time Temp Pulse Resp B/P (MAP) Pulse Ox O2 Delivery O2 Flow Rate FiO2 11/16/24 19:55 98.7 103 14 116/76 (89) 94 98.7 Lab Test 11/16/24 19:59 Range/Units White Blood Count 9.3 4.4-10.8 10^3/uL Red Blood Count 5.67 4.5-5.90 10^6/uL Hemoglobin 17.1 13.5-17.5 g/dL Hematocrit 48.4 41.0-53.0 % Mean Corpuscular Volume 85.4 80.0-100.0 fL Mean Corpuscular Hemoglobin 30.1 28.0-32.0 pg Mean Corpuscular Hemoglobin Concent 35.3 32.0-36.0 g/dL Red Cell Distribution Width 13.4 11.8-14.3 % Platelet Count 185 140-450 10^3/uL Mean Platelet Volume 8.3 6.9-10.8 fL Neutrophils (%) (Auto) 88.0 H 37.0-80.0 % Lymphocytes (%) (Auto) 8.5 L 10.0-50.0 % Monocytes (%) (Auto) 3.2 0.0-12.0 % Eosinophils (%) (Auto) 0.0 0.0-7.0 % Basophils (%) (Auto) 0.3 0.0-2.0 % Neutrophils # (Auto) 8.2 1.6-8.6 10 ^3/uL Lymphocytes # (Auto) 0.8 0.4-5.4 10 ^3/uL Monocytes # (Auto) 0.3 0-1.3 10 ^3/uL Eosinophils # (Auto) 0 0-0.8 10 ^3/uL Basophils # (Auto) 0 0-0.2 10 ^3/uL Nucleated Red Blood Cells 0.2 % Sodium Level 140 136-145 mmol/L Potassium Level 4.2 3.5-5.1 mmol/L Chloride Level 98 98-107 mmol/L Carbon Dioxide Level 24 20-31 mmol/L Anion Gap 18 H 5-15 Blood Urea Nitrogen 7 L 9-23 mg/dL Creatinine 1.04 0.700-1.30 mg/dL Glomerular Filtration Rate Calc 100 >90 mL/min BUN/Creatinine Ratio 6.7 L 10.0-20.0 Serum Glucose 280 H 74-106 mg/dL Lactic Acid Level 4.6 *H 0.4-2.0 mmol/L Calcium Level 9.8 8.7-10.4 mg/dL Magnesium Level 0.9 *L 1.6-2.6 mg/dL Total Bilirubin 2.5 H 0.2-1.0 mg/dL Aspartate Amino Transferase (AST) 98 H <34 U/L Alanine Aminotransferase (ALT) 195 H 7-40 U/L Alkaline Phosphatase 157 H 46-116 U/L Troponin I High Sensitivity < 3 L </=54 ng/L Total Protein 8.8 H 5.7-8.2 g/dL Albumin 5.3 H 3.2-4.8 g/dL Lipase 73 H 12-53 U/L Plasma/Serum Blood Alcohol Pending Time of 1ST Reevaluation: 19:02 Reevaluation 1ST: Unchanged Patient Education/Counseling: Diagnosis, Treatment Family Education/Counseling: No Family Present Departure 1 Departure Time of Disposition: 19:02 Impression: Primary Impression: Alcohol abuse Additional Impressions: Hypomagnesemia Dehydration Pancreatitis Alcoholic gastritis Disposition: ADMITTED INPATIENT Admit to: [facility] Condition: Guarded Discharged With: Self Critical Care Note Critical Care Time?: No Heart Score Heart Score: Heart Score Response (Comments) Value History Slightly Suspicious 0 Age <45 0 Risk Factors No known risk factors 0 Total 0 I personally scribed for ANNALISA WATT DO ([email or web address]) on 11/16/24 at 20:02. Electronically submitted by Lala Garcia ([email or web address]). ANNALISA WATT DO Nov 16, 2024 20:02
[2024-11-16 20:19] LABS: Basophils # (auto) 0 10 ^3/uL (0-0.2); Basophils % (auto) 0.3 % (0.0-2.0); Eosinophils # (auto) 0 10 ^3/uL (0-0.8); Hematocrit 48.4 % (41.0-53.0); Hemoglobin 17.1 g/dL (13.5-17.5); Lymphocytes # (auto) 0.8 10 ^3/uL (0.4-5.4); Lymphocytes % (auto) 8.5 % (10.0-50.0); Mean Corpuscular Hemoglobin 30.1 pg (28.0-32.0); Mean Corpuscular Hgb Conc. 35.3 g/dL (32.0-36.0); Mean Corpuscular Volume 85.4 fL (80.0-100.0); Monocytes # (auto) 0.3 10 ^3/uL (0-1.3); Monocytes % (auto) 3.2 % (0.0-12.0); Neutrophils # (auto) 8.2 10 ^3/uL (1.6-8.6); Nucleated Red Blood Cells % 0.2 %; Platelet Count (auto) 185 10^3/uL (140-450); Red Blood Cells 5.67 10^6/uL (4.5-5.90); Red Cell Distribution Width 13.4 % (11.8-14.3); White Blood Cell 9.3 10^3/uL (4.4-10.8)
[2024-11-16 20:29] LABS: Anion Gap 18 (5-15); BUN/Creatinine Ratio 6.7 (10.0-20.0); Calcium 9.8 mg/dL (8.7-10.4); Carbon Dioxide 24 mmol/L (20-31); Chloride 98 mmol/L (98-107); Potassium 4.2 mmol/L (3.5-5.1); Sodium 140 mmol/L (136-145)
[2024-11-16 20:33] LABS: Alanine Aminotransferase 195 U/L (7-40); Albumin 5.3 g/dL (3.2-4.8); Alkaline Phosphatase 157 U/L (46-116); Aspartate Aminotransferase 98 U/L (<34); Bilirubin, Total 2.5 mg/dL (0.2-1.0); Blood Urea Nitrogen 7 mg/dL (9-23); Glucose 280 mg/dL (74-106); Total Protein 8.8 g/dL (5.7-8.2)
[2024-11-16 20:34] LABS: Magnesium 0.9 mg/dL (1.6-2.6)
[2024-11-16 20:35] LABS: Lactic Acid w/Reflex 4.6 mmol/L (0.4-2.0)
[2024-11-16 21:18] LABS: Blood Alcohol 4.8 mg/dL (<10)
[2024-11-16 22:10] VITALS: PULSE 111; RESP 24; O2SAT 95
[2024-11-16] MEDS: PANTOPRAZOLE 40 MG/10 ML VIAL INJ IV ONE (22:19)
[2024-11-16] MEDS: ONDANSETRON HCL 4 MG/2 ML VIAL IV ONE (22:20)
[2024-11-16] MEDS: SODIUM CHLORIDE 0.9% 2,000 ML IV ONE (22:20)
[2024-11-16] MEDS: MAGNESIUM SULFATE 1GM/100ML 100 ML IV ONE ×2 (22:20→23:25)
[2024-11-16] MEDS: SODIUM CHLORIDE 0.9% 1,000 ML IV ONE (22:43)
[2024-11-16] MEDS: THIAMINE 100mg/ml INJ (200mg/2ml VIAL) IV ONE (22:51)
--- NOTE | 2024-11-16 23:51 | DVHHPRES ---
History of Present Illness Resident Creating Document: GURINDER RICHARDSON RESIDENT History of Present Illness 29-year-old male patient with past medical history of alcohol-related pancreatitis, delirium tremens presented with complaints of epigastric pain that was periumbilical radiating to red-huerta right side of the abdomen, severe 10/10, similar to the one when he had pancreatitis, associated with nausea and vomiting. Patient also had associated chest pain and generalized weakness. Patient mentioned that he has been drinking heavily since last three days with 750 mL of Tequila and vodka, last drink was Tuesday morning. Patient had not eaten food for last three days and has been drinking alcohol only. Patient mentioned that he had almost 60 episodes of vomiting. Patient mentioned associated tingling and numbness over the face, tremors, anxiety. Denied visual/auditory hallucinations Past medical history alcohol-related pancreatitis, delirium tremens, hypertension, hyperlipidemia Past surgical history Denied Medication history No active medication Social history Patient drinks heavily, smokes only when drinking alcohol Denied marijuana or any other drug intake Family history Noncontributory due to the above illness Review of Systems Review of Systems As described in the HPI Allergies: Coded Allergies: NO KNOWN ALLERGIES (Unverified , 06/29/23) Exam Vital Signs Vital Signs Date Time Temp Pulse Resp B/P (MAP) Pulse Ox O2 Delivery O2 Flow Rate FiO2 11/16/24 22:10 111 24 95 Room Air* 0 21 11/16/24 22:10 98.1 149/102 (118) 98.1 Exam Examination General Appearance: Anxious and generalized tremors HEENT: EOMI Respiratory: Clear to auscultation, Normal air movement Cardiovascular: Regular rate, Normal S1, Normal S2 Abdominal: Normal bowel sounds Extremities: No cyanosis, No edema, Normal pulses, No tenderness/swelling Skin: No rashes, No breakdown Neuro: Normal gait, Normal speech, Strength at 5/5 X4 ext, Normal tone, Sensation intact, Cranial nerves 3-12 NL, Reflexes 2+ Psych/Mental Status: Mental status NL, Mood NL Labs/Xrays Labs Test 11/16/24 21:40 11/16/24 19:59 Range/Units Lactic Acid Level 5.6 *H 0.4-2.0 mmol/L White Blood Count 9.3 4.4-10.8 10^3/uL Red Blood Count 5.67 4.5-5.90 10^6/uL Hemoglobin 17.1 13.5-17.5 g/dL Hematocrit 48.4 41.0-53.0 % Mean Corpuscular Volume 85.4 80.0-100.0 fL Mean Corpuscular Hemoglobin 30.1 28.0-32.0 pg Mean Corpuscular Hemoglobin Concent 35.3 32.0-36.0 g/dL Red Cell Distribution Width 13.4 11.8-14.3 % Platelet Count 185 140-450 10^3/uL Mean Platelet Volume 8.3 6.9-10.8 fL Neutrophils (%) (Auto) 88.0 H 37.0-80.0 % Lymphocytes (%) (Auto) 8.5 L 10.0-50.0 % Monocytes (%) (Auto) 3.2 0.0-12.0 % Eosinophils (%) (Auto) 0.0 0.0-7.0 % Basophils (%) (Auto) 0.3 0.0-2.0 % Neutrophils # (Auto) 8.2 1.6-8.6 10 ^3/uL Lymphocytes # (Auto) 0.8 0.4-5.4 10 ^3/uL Monocytes # (Auto) 0.3 0-1.3 10 ^3/uL Eosinophils # (Auto) 0 0-0.8 10 ^3/uL Basophils # (Auto) 0 0-0.2 10 ^3/uL Nucleated Red Blood Cells 0.2 % Sodium Level 140 136-145 mmol/L Potassium Level 4.2 3.5-5.1 mmol/L Chloride Level 98 98-107 mmol/L Carbon Dioxide Level 24 20-31 mmol/L Anion Gap 18 H 5-15 Blood Urea Nitrogen 7 L 9-23 mg/dL Creatinine 1.04 0.700-1.30 mg/dL Glomerular Filtration Rate Calc 100 >90 mL/min BUN/Creatinine Ratio 6.7 L 10.0-20.0 Serum Glucose 280 H 74-106 mg/dL Calcium Level 9.8 8.7-10.4 mg/dL Magnesium Level 0.9 *L 1.6-2.6 mg/dL Total Bilirubin 2.5 H 0.2-1.0 mg/dL Aspartate Amino Transferase (AST) 98 H <34 U/L Alanine Aminotransferase (ALT) 195 H 7-40 U/L Alkaline Phosphatase 157 H 46-116 U/L Troponin I High Sensitivity < 3 L </=54 ng/L Total Protein 8.8 H 5.7-8.2 g/dL Albumin 5.3 H 3.2-4.8 g/dL Lipase 73 H 12-53 U/L Plasma/Serum Blood Alcohol 4.8 <10 mg/dL Assessment/Plan Assessment/Plan Assessment/plan # alcohol-related pancreatitis NPO IV lactated ringer CT abdomen pelvis shows: Acute pancreatitis and probable pseudocyst within the tail of the pancreas following previous pancreatitis episode in June 2023. Lipid panel Liver ultrasound #Alcohol Use disorder with alcohol withdrawal CIWA score 18 IV Ativan 1 mg q.4 scheduled IV thiamine followed by a banana bag Check Electrolytes, potassium, magnesium, phosphate Monitor closely for alcohol withdrawal # hypomagnesemia Corrected Repeat BMP and magnesium # Hepatic Steatosis, with hepatomegaly -likely due to alcohol use disorder Follow up with CMP # transaminitis due to alcoholic hepatitis Follow up with CMP Critical care time excluding procedures greater than 51 minutes Case discussion with Dr. Cary Plan discussed with: Patient, Other My Orders Orders - GURINDER RICHARDSON RESIDENT Procedure Category Date Status Time Admit ADMIT 11/16/24 Verified 23:50 Oxygen By Nasal RT 11/16/24 Verified Cannula 23:50 Stat Ekg For Chest [facility] 11/16/24 Verified Pain 23:50 Notify Md Of Changes [facility] 11/16/24 Verified From Base 23:50 Advanced Nursing Professor For [facility] 11/16/24 Verified 24 Hours 23:50 Emergency Dysrhythmia [facility] 11/16/24 Verified Protocol 23:50 Rhythm Strips Once [facility] 11/16/24 Verified Every Shift 23:50 Date of Service: Nov 16, 2024 Billing Provider: JOSE ALBERTO CARY MD Common Visit Codes: [id number] INP/OBS CARE (HIGH) GURINDER RICHARDSON RESIDENT Nov 16, 2024 23:51 JOSE ALBERTO CARY MD Nov 17, 2024 08:50
[2024-11-17] VITALS (13 sets, daily range): BP systolic 100–145; BP diastolic 54–94; PULSE 52–97; RESP 12–19; TEMP 97.8–98.8; O2SAT 91–100
[2024-11-17] MEDS ORDERED: FOLIC ACID 1 MG, MAGNESIUM SULF SDV 50% 8 MEQ, MULTIPLE VITAMIN 10 ML, THIAMINE INJ 100... INJ SCH (00:15)
[2024-11-17] MEDS ORDERED: LACTATED RINGER'S 1,000 ML IV SCH (00:15)
[2024-11-17] MEDS ORDERED: ONDANSETRON HCL 4 MG/2 ML VIAL IV PRN (00:15)
[2024-11-17] MEDS: IOHEXOL 300 MG/ML 100ML BOTTLE IJ ONE (00:25)
[2024-11-17] MEDS: THIAMINE 100mg/ml INJ (200mg/2ml VIAL) ONE (00:32)
--- NOTE | 2024-11-17 00:57 | DVH ---
CLINICAL INFORMATION: 29 years old, Male; abdominal pain. TECHNIQUE: Grayscale sonographic imaging of the abdomen was performed, assisted by color Doppler gustavo hnique. COMPARISON: US ABDOMEN LIMITED on DOS: 07/01/23, US GALLBLADDER on DOS: 06/29/23 FINDINGS: The gallbladder wall measures 3 mm in thickness, within normal limits. No stones are see n. The common bile duct measures 4 mm in diameter, within normal limits. The liver is enlarged, measuring 20.6 cm. There is increased hepatic echogenicity. The pancreas is partly obscured, likely by bowel gas. The visualized portions appear normal. The right kidney measures 11.3 cm. There is no hydronephrosis. Normal cortical echogenicity and co rtical thickness. IMPRESSION: 1. No cholelithiasis or sonographic evidence for acute cholecystitis. 2. Hepatomegaly and increased hepatic echogenicity, which may be referable to hepatic steatosis or in trinsic hepatocellular disease.
--- NOTE | 2024-11-17 01:11 | DVH ---
Exam: CT CT AB PELVIS W WO CON-IV ONLY History: abdominal pain Comparison Study: CT CT AB PEL WITH IV CON ONLY on DOS: 07/09/23 Technique: Multidetector spiral CT of the abdomen was performed from lung bases to pubic symphysis. I maging was performed without IV contrast. Axial, coronal and sagittal multiplanar reformats were obta ined from the axial data set by the technologist. Radiation Dose : 1. Abdomen/Pelvis: CTDIvol 15.02 mGy, DLP 1900.65 mGy*cm. Findings: Evaluation of solid organs is limited due to lack of intravenous contrast use. Lung Bases: No acute or significant lung base finding. Normal heart size. No pleural or pericardial effusion. Liver: The liver is enlarged, measuring 21.5 cm in craniocaudal dimension. Diffuse hepatic steatosis. No focal lesions. Gallbladder and Biliary Tree: Unremarkable Spleen: Unremarkable Pancreas: Moderate diffuse inflammatory and phlegmonous change adjacent to the head and body of the p ancreas. 5.1 x 3.4 cm cystic appearing near water attenuation structure within the distal tail of the pancreas, consistent with pseudocyst. Adrenal Glands: Unremarkable Kidneys: Kidneys are grossly normal without calculi or hydronephrosis. Bladder: Grossly unremarkable for degree of distention. Bowel: The stomach is grossly normal in appearance. Small bowel and colon are normal in caliber and d istribution. The appendix is normal. Ascites: Absent Lymphadenopathy: No mesenteric, retroperitoneal or periportal lymphadenopathy. Abdominal Wall and Mesentery: Unremarkable. Vasculature: The visualized abdominal aorta is normal in size and caliber. Evaluation of abdominal a nd pelvic vessels is limited due to lack of intravenous contrast. Pelvic Organs: Unremarkable Musculoskeletal: No aggressive focal bony lesions, acute fractures or dislocation. IMPRESSION: 1. Acute pancreatitis and probable pseudocyst within the tail of the pancreas following previous panc reatitis episode in June 2023. 2. Hepatomegaly and hepatic steatosis. Radiation optimization: All CT scans at this facility use at least one of these dose optimization gustavo hniques: automated exposure control mA and/or kV adjustment per patient size (includes targeted exam s where dose is matched to clinical indication) or iterative reconstruction.
[2024-11-17] MEDS: LORazepam 2MG/ML-1ML VIAL IV SCH (01:17)
[2024-11-17] MEDS: LACTATED RINGER'S 1,000 ML IV SCH (01:23)
[2024-11-17] MEDS: FOLIC ACID 1 MG, MULTIPLE VITAMIN 10 ML, MAGNESIUM SULF SDV 50% 8 MEQ, THIAMINE INJ 100... INJ SCH ×2 (01:40→11:46)
[2024-11-17] MEDS: MAGNESIUM SULFATE 1GM/100ML 100 ML IV SCH (04:03)
[2024-11-17 05:50] LABS: Basophils # (auto) 0 10 ^3/uL (0-0.2); Basophils % (auto) 0.3 % (0.0-2.0); Eosinophils # (auto) 0 10 ^3/uL (0-0.8); Eosinophils % (auto) 0.1 % (0.0-7.0); Hemoglobin 14.7 g/dL (13.5-17.5); Lymphocytes # (auto) 0.8 10 ^3/uL (0.4-5.4); Lymphocytes % (auto) 14.1 % (10.0-50.0); Mean Corpuscular Hemoglobin 30.4 pg (28.0-32.0); Mean Corpuscular Volume 86.8 fL (80.0-100.0); Monocytes # (auto) 0.4 10 ^3/uL (0-1.3); Monocytes % (auto) 7.2 % (0.0-12.0); Neutrophils # (auto) 4.6 10 ^3/uL (1.6-8.6); Neutrophils % (auto) 78.3 % (37.0-80.0); Nucleated Red Blood Cells % 0.1 %; Red Blood Cells 4.83 10^6/uL (4.5-5.90); Red Cell Distribution Width 13.6 % (11.8-14.3); White Blood Cell 5.9 10^3/uL (4.4-10.8)
[2024-11-17 05:58] LABS: Platelet Count (auto) 94 10^3/uL (140-450)
[2024-11-17 06:07] LABS: Anion Gap 12 (5-15); BUN/Creatinine Ratio 8.6 (10.0-20.0); Calcium 9.3 mg/dL (8.7-10.4); Carbon Dioxide 28 mmol/L (20-31); Chloride 101 mmol/L (98-107); Magnesium 2.3 mg/dL (1.6-2.6); Sodium 141 mmol/L (136-145); Total Protein 7.3 g/dL (5.7-8.2)
[2024-11-17 06:08] LABS: Albumin 4.4 g/dL (3.2-4.8)
[2024-11-17 06:10] LABS: Alanine Aminotransferase 129 U/L (7-40); Alkaline Phosphatase 122 U/L (46-116); Aspartate Aminotransferase 65 U/L (<34); Bilirubin, Total 2.2 mg/dL (0.2-1.0); Blood Urea Nitrogen 8 mg/dL (9-23); Glucose 217 mg/dL (74-106); Potassium 3.4 mmol/L (3.5-5.1)
[2024-11-17] MEDS: POTASSIUM CHL 20MEQ/100ML 100 ML IV ONE (06:51)
[2024-11-17 06:57] LABS: Urine Bacteria None Seen /hpf (None Seen)
[2024-11-17 07:20] LABS: Cannabinoid Screen, Urine Neg (NEGATIVE)
[2024-11-17 07:27] LABS: Phosphorus 2.9 mg/dL (2.4-5.1)
[2024-11-17 07:28] LABS: Amphetamine Screen, Urine Neg (NEGATIVE); Barbiturate Scree,Urine Neg (NEGATIVE); Benzodiazephine Screen, Urine Neg (NEGATIVE); Cocaine Screen, Urine Neg (NEGATIVE); Opiate Scree,Urine Neg (NEGATIVE); Phencyclidine Screen, Urine Neg (NEGATIVE)
[2024-11-17 07:34] LABS: Urine Blood Negative /uL (Negative); Urine Clarity Clear (Clear); Urine Protein, UAD TRACE (Negative); Urine Squamous Epithelial Cell None Seen /hpf (<5); Urine Urobilinogen Normal (Negative); Urine WBC < 1 /HPF (0-3)
[2024-11-17 07:35] LABS: Urine Specific Gravity > 1.050 (1.001-1.035)
[2024-11-17 07:36] LABS: Urine Color Yellow (Yellow)
[2024-11-17 13:05] LABS: Amylase 48 U/L (30-118)
[2024-11-17 13:06] LABS: Lipase 66 U/L (12-53)
[2024-11-17] MEDS ORDERED: chlordiazePOXIDE HCL 25 MG CAP PO PRN (13:30)
[2024-11-17] MEDS: PANTOPRAZOLE 40 MG/10 ML VIAL INJ IV ONE (13:39)
--- NOTE | 2024-11-17 15:04 | DVHPN2 ---
Subjective Assuming the care with the patient from today onwards who was under the care of the hospitalist team. Dm sign out obtained. Patient states that he has been drinking for last due to use, has been drinking heavily for last four days. Still complaining of epigastric pain so she has been nausea. Changes from previous H/P or p: No Changes Objective Vitals Vital Signs Date Time Temp Pulse Resp B/P (MAP) Pulse Ox O2 Delivery O2 Flow Rate FiO2 11/17/24 13:00 82 19 100/54 (69) 92 11/17/24 12:00 98.7 98.7 11/17/24 07:30 Room Air* 0 21 Intake/Output Intake and Output 11/17/24 07:00 Intake Total 3200 ml Output Total 750 ml Balance 2450 ml Intake Oral 0 ml IV Total 3200 ml Output Urine Total 750 ml # Voids 1 Exam HEENT pupils are reactive Neck is supple CVS S1-S2 regular rate and rhythm In his Podiatry bilateral clear GI posterior bowel sounds soft nondistended mildly tender in epigastric region no guarding no rigidity Extremities no pedal edema 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 Medications Current Medications Medications Dose Ordered Sig/Maki Route Start Time Stop Time Status Last Admin Dose Admin Morphine Sulfate 1 mg Q4HP PRN IV 11/17/24 00:15 Folic Acid 1 mg/ Magnesium Sulfate 8 meq/ Multivitamins 10 ml/Thiamine HCl 100 mg/Sodium Chloride 1,013.2 ml @ 126.247 mls/hr DAILY@1800 INJ 11/17/24 00:15 Cancel Ondansetron HCl 4 mg Q4HPRN PRN IV 11/17/24 00:15 Lactated Ringer's 1,000 ml @ 100 mls/hr Q10H IV 11/17/24 01:00 11/17/24 11:00 100 MLS/HR Folic Acid 1 mg/ Multivitamins 10 ml/Magnesium Sulfate 8 meq/ Thiamine HCl 100 mg/Dextrose 1,013.2 ml @ 125.001 mls/hr DAILY@1800 INJ 11/17/24 11:00 11/17/24 11:46 125.001 MLS/HR Pantoprazole Sodium 40 mg DAILY IV 11/18/24 10:00 Lorazepam 1 mg Q4H PRN IV 11/17/24 13:30 Chlordiazepoxide HCl 25 mg Q6HR PO 11/17/24 18:00 Laboratory Results Laboratory Tests 11/17/24 04:42 Chemistry Test 11/16/24 19:59 11/17/24 04:42 Albumin 5.3 g/dL (3.2-4.8) H 4.4 g/dL (3.2-4.8) Calcium Level 9.8 mg/dL (8.7-10.4) 9.3 mg/dL (8.7-10.4) Magnesium Level 0.9 mg/dL (1.6-2.6) *L 2.3 mg/dL (1.6-2.6) # Phosphorus Level 3.1 mg/dL (2.4-5.1) 2.9 mg/dL (2.4-5.1) Total Protein 8.8 g/dL (5.7-8.2) H 7.3 g/dL (5.7-8.2) Lipid panel Test 11/16/24 19:59 11/17/24 04:42 Lipase 73 U/L (12-53) H 66 U/L (12-53) H Cholesterol Level 154 mg/dL (< 200) HDL Cholesterol 38 mg/dL (40-59) L Triglycerides Level 117 mg/dL (< 150) LFT Test 11/16/24 19:59 11/17/24 04:42 Alanine Aminotransferase (ALT) 195 U/L (7-40) H 129 U/L (7-40) H Alkaline Phosphatase 157 U/L (46-116) H 122 U/L (46-116) H Aspartate Amino Transferase (AST) 98 U/L (<34) H 65 U/L (<34) H Total Bilirubin 2.5 mg/dL (0.2-1.0) H 2.2 mg/dL (0.2-1.0) H Urinalysis Test 11/17/24 06:45 Urine Color Yellow (Yellow) Urine Clarity Clear (Clear) Urine pH 8.0 (5.0-9.0) Urine Specific [place] > 1.050 (1.001-1.035) Urine Protein Trace (Negative) H Urine Ketones 1+ (Negative) H Urine Blood Negative /uL (Negative) Urine Nitrite Negative (Negative) Urine Bilirubin Negative (Negative) Urine Urobilinogen Normal mg/dL (Negative) Urine Leukocyte Esterase Negative /uL (Negative) Urine RBC 1 /hpf (0 - 3) Urine Microscopic WBC < 1 /HPF (0-3) Urine Squamous Epithelial Cells None seen /hpf (<5) Urine Bacteria None seen /hpf (None Seen) Urine Glucose 4+ mg/dL (Normal) H Assessment/Plan Assessment/Plan 29Year old male with a known history of chronic alcoholism presented to the hospital with the epigastric pain was so she was nausea and vomiting found to have 1. Acute ETOH induced pancreatitis 2. Previous history of alcoholic pancreatitis 3. Pseudocyst of pancreas 4. Lactic acidosis 5. Transaminitis /alcoholic liver disease 6. Chronic alcoholism, watch for alcohol withdrawal syndrome/delirium tremens -clear liquid diet as tolerated, GI consultation, alcohol abstinence -daily IV banana bag watch for any alcohol withdrawal syndrome Plan discussed with: Patient, Other My Orders Orders - MALDONADO CHARLES MD Procedure Category Date Status Time * Gi Dvh Tar Distributor Operator CONS 11/17/24 Transmitted 12:50 * Mental Health Director CONS 11/17/24 Transmitted Consult Transfer Orders XFER 11/17/24 Transmitted 13:22 Pantoprazole PHA 11/18/24 In Process (Protonix) 10:00 Lorazepam 2mg/Ml Inj PHA 11/17/24 In Process (Ativan Inj) 13:30 Cardiac DIET 11/17/24 Transmitted Diet-2gna,Lofat,Lochol Lunch Chlordiazepoxide Hcl PHA 11/17/24 In Process Capsule (Librium Ca 18:00 Date of Service: Nov 17, 2024 Billing Provider: MALDONADO CHARLES MD Common Visit Codes: [id number] INP/OBS CARE(MOD) MALDONADO CHARLES MD Nov 17, 2024 15:04
[2024-11-17] MEDS ORDERED: chlordiazePOXIDE HCL 25 MG CAP PO SCH (18:00)
[2024-11-17] MEDS: chlordiazePOXIDE HCL 25 MG CAP PO SCH (18:25)
[2024-11-17] MEDS: MORPHINE SULFATE INJ 2 MG/ml SYRG IV PRN (20:14)
[2024-11-17] MEDS: LORazepam 2MG/ML-1ML VIAL IV PRN (21:43)
[2024-11-18] VITALS (7 sets, daily range): BP systolic 120–135; BP diastolic 82–97; PULSE 71–86; RESP 16–20; TEMP 97.7–99.1; O2SAT 97–99
[2024-11-18] MEDS: PANTOPRAZOLE 40 MG/10 ML VIAL INJ IV SCH (10:41)
[2024-11-18] MEDS: MAGNESIUM OXIDE 400 MG TAB PO ONE (11:40)
[2024-11-18] MEDS: FOLIC ACID 1 MG TAB PO ONE (11:40)
[2024-11-18] MEDS: MULTIPLE VITAMIN TAB PO ONE (11:40)
[2024-11-18] MEDS: THIAMINE HCL 100 MG TAB PO ONE (11:41)
--- NOTE | 2024-11-18 14:26 | DVHPN2 ---
Subjective Patient states that he has been drinking for last eight years, has been drinking heavily for last four days. Still complaining of hand tremors. 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 Medications Current Medications Medications Dose Ordered Sig/Maki Route Start Time Stop Time Status Last Admin Dose Admin Morphine Sulfate 1 mg Q4HP PRN IV 11/17/24 00:15 11/17/24 20:14 1 MG Folic Acid 1 mg/ Magnesium Sulfate 8 meq/ Multivitamins 10 ml/Thiamine HCl 100 mg/Sodium Chloride 1,013.2 ml @ 126.247 mls/hr DAILY@1800 INJ 11/17/24 00:15 Cancel Ondansetron HCl 4 mg Q4HPRN PRN IV 11/17/24 00:15 Lactated Ringer's 1,000 ml @ 100 mls/hr Q10H IV 11/17/24 01:00 11/18/24 07:00 100 MLS/HR Pantoprazole Sodium 40 mg DAILY IV 11/18/24 10:00 11/18/24 10:41 40 MG Lorazepam 1 mg Q4H PRN IV 11/17/24 13:30 11/18/24 11:42 1 MG Chlordiazepoxide HCl 25 mg Q6HR PO 11/17/24 18:00 11/18/24 11:41 25 MG Folic Acid 1 mg DAILY PO 11/19/24 10:00 Multivitamins 1 tab DAILY PO 11/19/24 10:00 Magnesium Oxide 400 mg DAILY PO 11/19/24 10:00 Thiamine HCl 100 mg DAILY PO 11/19/24 10:00 Laboratory Results Laboratory Tests 11/17/24 04:42 Urinalysis Test 11/17/24 06:45 Urine Color Yellow (Yellow) Urine Clarity Clear (Clear) Urine pH 8.0 (5.0-9.0) Urine Specific [place] > 1.050 (1.001-1.035) Urine Protein Trace (Negative) H Urine Ketones 1+ (Negative) H Urine Blood Negative /uL (Negative) Urine Nitrite Negative (Negative) Urine Bilirubin Negative (Negative) Urine Urobilinogen Normal mg/dL (Negative) Urine Leukocyte Esterase Negative /uL (Negative) Urine RBC 1 /hpf (0 - 3) Urine Microscopic WBC < 1 /HPF (0-3) Urine Squamous Epithelial Cells None seen /hpf (<5) Urine Bacteria None seen /hpf (None Seen) Urine Glucose 4+ mg/dL (Normal) H Assessment/Plan Assessment/Plan 29Year old male with a known history of chronic alcoholism presented to the hospital with the epigastric pain was so she was nausea and vomiting found to have 1. Acute ETOH induced pancreatitis 2. Previous history of alcoholic pancreatitis 3. Pseudocyst of pancreas 4. Lactic acidosis 5. Transaminitis /alcoholic liver disease 6. Chronic alcoholism, watch for alcohol withdrawal syndrome/delirium tremens -advanced diet as tolerated, GI consultation, alcohol abstinence -daily IV banana bag watch for any alcohol withdrawal syndrome. -Librium and Ativan p.r.n.. Plan discussed with: Patient My Orders Orders - MALDONADO CHARLES MD Procedure Category Date Status Time Chlordiazepoxide Hcl PHA 11/17/24 In Process Capsule (Librium Ca 18:00 Comprehensive LAB 11/18/24 Verified Metabolic Panel 14:24 Lactic Acid W/ Reflex LAB 11/18/24 Verified Order 14:24 Date of Service: Nov 18, 2024 Billing Provider: MALDONADO CHARLES MD Common Visit Codes: [id number] INP/OBS CARE(MOD) MALDONADO CHARLES MD Nov 18, 2024 14:26
[2024-11-18 15:24] LABS: Albumin 4.3 g/dL (3.2-4.8); Anion Gap 10 (5-15); BUN/Creatinine Ratio 8.2 (10.0-20.0); Calcium 9.4 mg/dL (8.7-10.4); Carbon Dioxide 24 mmol/L (20-31); Chloride 103 mmol/L (98-107); Potassium 4.2 mmol/L (3.5-5.1); Sodium 137 mmol/L (136-145); Total Protein 6.9 g/dL (5.7-8.2)
[2024-11-18 15:26] LABS: Alanine Aminotransferase 144 U/L (7-40); Alkaline Phosphatase 121 U/L (46-116); Aspartate Aminotransferase 152 U/L (<34); Bilirubin, Total 2.6 mg/dL (0.2-1.0); Blood Urea Nitrogen 6 mg/dL (9-23); Glucose 183 mg/dL (74-106)
--- NOTE | 2024-11-18 23:24 | DVHINCON2 ---
Date of service: Nov 18, [address] Jimenez Reason for Consultation Pancreatitis and pancreatic pseudocyst History of Present Illness 29-year-old male patient with past medical history of alcohol-related pancreatitis, delirium tremens presented with complaints of epigastric pain that was periumbilical radiating to red-huerta right side of the abdomen, severe 10/10, similar to the one when he had pancreatitis, associated with nausea and vomiting. Patient also had associated left upper quadrant pain, atypical chest pain and generalized weakness. He complained of GERD symptoms nausea esophageal burning and some trouble swallowing. Patient mentioned that he has been drinking heavily since last three days with 750 mL of Tequila and vodka, last drink was Tuesday morning. Patient had not eaten food for last three days and has been drinking alcohol only. Patient mentioned that he had almost 60 episodes of vomiting. Patient has not had a prior endoscopy. He did have have an episode of pancreatitis in June of this year and the CT scan is suggestive of a residual small pancreatic pseudocyst Patient had moderate elevation in liver enzymes. His hepatitis panel was negative on his last admission Past Medical History Past medical history alcohol-related pancreatitis, delirium tremens, hypertension, hyperlipidemia Past Surgical History None Family History: Patient reports no known family medical history. Social History Failed attempts at rehab and trying to quit Allergies: Coded Allergies: NO KNOWN ALLERGIES (Unverified , 06/29/23) Home Meds Active Scripts Doxycycline Hyclate (DOXYCYCLINE HYCLATE) 100 Mg Tab, 1 TAB PO BID for 7 Days, #14 TAB Prov:JANIE HARKINS BUSINESS LIAISON OFFICER 07/12/23 Reported Medications Dexlansoprazole (Dexlansoprazole) 30 Mg Cap, 30 MG PO PRN, CAP 06/30/23 Current Medications Current Medications Medications (Trade) Dose Ordered Sig/Maki Route PRN Reason Start Time Stop Time Status Last Admin Pantoprazole Sodium (Protonix) 40 mg DAILY IV 11/18/24 10:00 11/18/24 10:41 Folic Acid 1 mg DAILY PO 11/19/24 10:00 Multivitamins (Mvi Tab) 1 tab DAILY PO 11/19/24 10:00 Magnesium Oxide (Mag-Ox Tablet) 400 mg DAILY PO 11/19/24 10:00 Thiamine HCl 100 mg DAILY PO 11/19/24 10:00 Vital Signs Vital Signs Date Time Temp Pulse Resp B/P (MAP) Pulse Ox O2 Delivery O2 Flow Rate FiO2 11/18/24 21:00 98.7 71 18 124/93 (103) 97 98.7 11/18/24 08:05 Room Air* 0 21 Physical Exam HEENT pupils are reactive Neck is supple CVS S1-S2 regular rate and rhythm GI positive bowel sounds soft nondistended mildly tender in epigastric region no guarding no rigidity Extremities 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 Labs/Diagnostic Data Labs Test 11/18/24 14:50 11/17/24 06:45 11/17/24 04:42 11/16/24 19:59 Range/Units Sodium Level 137 136-145 mmol/L Potassium Level 4.2 3.5-5.1 mmol/L Chloride Level 103 98-107 mmol/L Carbon Dioxide Level 24 20-31 mmol/L Anion Gap 10 5-15 Blood Urea Nitrogen 6 L 9-23 mg/dL Creatinine 0.73 0.700-1.30 mg/dL Glomerular Filtration Rate Calc 127 >90 mL/min BUN/Creatinine Ratio 8.2 L 10.0-20.0 Serum Glucose 183 H 74-106 mg/dL Lactic Acid Level 1.5 0.4-2.0 mmol/L Calcium Level 9.4 8.7-10.4 mg/dL Total Bilirubin 2.6 H 0.2-1.0 mg/dL Aspartate Amino Transferase (AST) 152 H <34 U/L Alanine Aminotransferase (ALT) 144 H 7-40 U/L Alkaline Phosphatase 121 H 46-116 U/L Total Protein 6.9 5.7-8.2 g/dL Albumin 4.3 3.2-4.8 g/dL Urine Color Yellow Yellow Urine Clarity Clear Clear Urine pH 8.0 5.0-9.0 Urine Specific [place] > 1.050 H 1.001-1.035 Urine Protein Trace H Negative Urine Ketones 1+ H Negative Urine Blood Negative Negative /uL Urine Nitrite Negative Negative Urine Bilirubin Negative Negative Urine Urobilinogen Normal Negative mg/dL Urine Leukocyte Esterase Negative Negative /uL Urine RBC 1 0 - 3 /hpf Urine Microscopic WBC < 1 0-3 /HPF Urine Squamous Epithelial Cells None seen <5 /hpf Urine Bacteria None seen None Seen /hpf Urine Glucose 4+ H Normal mg/dL Urine Opiates Screen Neg NEGATIVE Urine Fentanyl Screen Neg NEGATIVE Urine Barbiturates Screen Neg NEGATIVE Urine Phencyclidine Screen Neg NEGATIVE Urine Amphetamines Screen Neg NEGATIVE Urine Benzodiazepines Screen Neg NEGATIVE Urine Cocaine Screen Neg NEGATIVE Urine Cannabinoids Screen Neg NEGATIVE White Blood Count 5.9 # 4.4-10.8 10^3/uL Red Blood Count 4.83 4.5-5.90 10^6/uL Hemoglobin 14.7 13.5-17.5 g/dL Hematocrit 42.0 # 41.0-53.0 % Mean Corpuscular Volume 86.8 80.0-100.0 fL Mean Corpuscular Hemoglobin 30.4 28.0-32.0 pg Mean Corpuscular Hemoglobin Concent 35.0 32.0-36.0 g/dL Red Cell Distribution Width 13.6 11.8-14.3 % Platelet Count 94 L 140-450 10^3/uL Mean Platelet Volume 8.6 6.9-10.8 fL Neutrophils (%) (Auto) 78.3 37.0-80.0 % Lymphocytes (%) (Auto) 14.1 10.0-50.0 % Monocytes (%) (Auto) 7.2 0.0-12.0 % Eosinophils (%) (Auto) 0.1 0.0-7.0 % Basophils (%) (Auto) 0.3 0.0-2.0 % Neutrophils # (Auto) 4.6 1.6-8.6 10 ^3/uL Lymphocytes # (Auto) 0.8 0.4-5.4 10 ^3/uL Monocytes # (Auto) 0.4 0-1.3 10 ^3/uL Eosinophils # (Auto) 0 0-0.8 10 ^3/uL Basophils # (Auto) 0 0-0.2 10 ^3/uL Nucleated Red Blood Cells 0.1 % Phosphorus Level 2.9 2.4-5.1 mg/dL Magnesium Level 2.3 # 1.6-2.6 mg/dL Triglycerides Level 117 < 150 mg/dL Cholesterol Level 154 < 200 mg/dL LDL Cholesterol 107 H < 100 mg/dL HDL Cholesterol 38 L 40-59 mg/dL Amylase Level 48 30-118 U/L Lipase 66 H 12-53 U/L Troponin I High Sensitivity < 3 L </=54 ng/L Plasma/Serum Blood Alcohol 4.8 <10 mg/dL Liver USG IMPRESSION: 1. No cholelithiasis or sonographic evidence for acute cholecystitis. 2. Hepatomegaly and increased hepatic echogenicity, which may be referable to he patic steatosis or intrinsic hepatocellular disease. CT ABD PELVIS IMPRESSION: 1. Acute pancreatitis and probable pseudocyst within the tail of the pancreas following previous pancreatitis episode in June 2023. 2. Hepatomegaly and hepatic steatosis. Problems(with codes): (1) Pancreatitis (2) Alcohol abuse (3) Dehydration (4) Alcoholic gastritis (5) Elevated liver enzymes (6) Hepatic steatosis (7) Alcoholic hepatitis (8) Acute pancreatitis Plan/Recommendation A/Plan Epigastric pain Likely related to alcoholic gastritis and pancreatitis Protonix 40 mg p.o. twice a day Carafate 1 g p.o. twice a day Discontinue alcohol EGD on 11/19/2024 if the patient is clinically stable without active withdrawal Elevated liver enzymes Likely related to alcoholic steatohepatitis ; hepatitis panel negative Check PT INR so we can calculate his risk stratification and Maddrey discrimination function Check ammonia level Lactic acidosis is resolved Pancreatitis with pancreatic pseudocyst Likely related to alcohol ; monitor labs Mild elevation in lipase which was trending downwards; check CA 19 nine Continue conservative management and observation of Pancreatic pseudocyst ; repeat CT in 6-8 weeks Plan discussed with: Patient NICK HERNANDEZ MD Nov 18, 2024 23:24
[2024-11-19] VITALS (8 sets, daily range): BP systolic 116–128; BP diastolic 86–97; PULSE 71–98; RESP 13–20; TEMP 98–99; O2SAT 95–99
[2024-11-19] MEDS: SUCRALFATE 1 GM/10 ML ORAL SUSP PO SCH (05:37)
[2024-11-19 07:03] LABS: Albumin 4.1 g/dL (3.2-4.8); Total Protein 6.8 g/dL (5.7-8.2)
[2024-11-19 07:05] LABS: INR 1.13 (0.9-1.15); Prothrombin Time 11.8 sec (9.3-11.8)
[2024-11-19 07:15] LABS: Bilirubin, Total 1.9 mg/dL (0.2-1.0)
[2024-11-19 10:36] LABS: Folate (Folic Acid) 13.55 ng/mL (>5.38)
[2024-11-19] MEDS: MAGNESIUM OXIDE 400 MG TAB PO SCH (11:05)
[2024-11-19] MEDS: FOLIC ACID 1 MG TAB PO SCH (11:05)
[2024-11-19] MEDS: THIAMINE HCL 100 MG TAB PO SCH (11:05)
[2024-11-19] MEDS: MULTIPLE VITAMIN TAB PO SCH (11:06)
[2024-11-19] MEDS ORDERED: PROPOFOL 10 MG/ML 20 ML IV ONE (14:28)
[2024-11-19] MEDS ORDERED: LIDOCAINE 1% INJ PF 5ML AMP ONE (14:28)
[2024-11-19] MEDS ORDERED: PANT40TA2 PO (15:32)
[2024-11-19] MEDS ORDERED: SUCR1TAB31 OR (15:32)
--- NOTE | 2024-11-19 15:32 | DVHOP2 ---
Operative Report DATE OF OPERATION: 11/19/24 PROCEDURE: Upper Endoscopy with biopsy. PREOPERATIVE INDICATION: The patient is a 29 -year-old male undergoing endoscopy for nausea and vomiting odynophagia and epigastric pain POSTOPERATIVE DIAGNOSES: 1. 1-2 cm sliding-type hiatal hernia with grade B linear erosive esophagitis with linear esophageal ulcers extending into the distal 7-8 cm of the esophagus from which biopsies were obtained 2. [id number] gastropathy of the proximal stomach possibly from retching or from portal hypertension 3. Mild gastroduodenitis otherwise normal examination up to the 2nd and 3rd part of the duodenal with no active bleeding and no varices and good bile drainage PROCEDURE PERFORMED BY: Pamela Brannon GI NURSE: Maral SCOPE: Olympus videoendoscope. ASA CLASS: 2 PREOPERATIVE MEDICATIONS: Mac sedation, Naeem PROCEDURE IN DETAIL: After obtaining an informed consent, the patient was placed on left lateral decubitus position. The patient was then sedated with the above medications. A bite block was placed between his teeth. The endoscope was then passed through the oropharynx, into the esophagus, and through the stomach and pylorus up to the second and third part of the duodenum. The endoscope was then withdrawn. Second and third part of the duodenum were normal and duodenal bulb showed minimal duodenitis. There was good bile drainage The pre-pyloric area and antrum showed mild gastritis. Gastric biopsies and duodenal biopsies were obtained. On retroflexion the patient had an area of hyperemia mucosal edema in the proximal stomach possibly related to recurrent retching or mild portal hyperte nsion gastropathy Biopsies were obtained from this area. The endoscope was then withdrawn into the distal esophagus. Patient had a 1-2 cm sliding-type hiatal hernia. Patient had grade B linear erosive esophagitis with linear esophageal ulcers extending into the distal 7-8 cm of the esophagus from which biopsies were obtained The remaining mid and proximal esophagus and oropharynx were unremarkable The patient tolerated the procedure well without difficulty. COMPLICATIONS : None SPECIMENS: Duodenal biopsies Gastric biopsies Esophageal biopsies DISPOSITION: Transfer back to the floor Stable PLAN: 1. Await for biopsy result 2. Will place pt on Protonix 40 mg bid p.o. 3. Carafate suspension 1 g p.o. 4 times a day 4. DC aspirin NSAIDs smoking alcohol 5. Outpatient follow up with GI Services in 2-4 weeks to review results and discuss further management PAMELA BRANNON MD Nov 19, 2024 15:32
--- NOTE | 2024-11-19 15:34 | DVHDS2 ---
Discharge Summary Date of Admission Nov 16, 2024 at 23:50 Date of Discharge: Nov 19, 2024 Labs/Diagnostic Data: Laboratory Results Test 11/19/24 06:05 11/18/24 14:50 11/17/24 06:45 11/17/24 04:42 Prothrombin Time 11.8 sec (9.3-11.8) Prothrombin Time INR 1.13 (0.9-1.15) Ferritin 751.6 ng/mL (22-322) Total Bilirubin 1.9 mg/dL (0.2-1.0) Direct Bilirubin 1.0 mg/dL (<0.3) Aspartate Amino Transferase (AST) 213 U/L (<34) Alanine Aminotransferase (ALT) 171 U/L (7-40) Alkaline Phosphatase 111 U/L (46-116) Ammonia 50 umol/L (11-32) Total Protein 6.8 g/dL (5.7-8.2) Albumin 4.1 g/dL (3.2-4.8) Lipase 30 U/L (12-53) Sodium Level 137 mmol/L (136-145) Potassium Level 4.2 mmol/L (3.5-5.1) Chloride Level 103 mmol/L (98-107) Carbon Dioxide Level 24 mmol/L (20-31) Anion Gap 10 (5-15) Blood Urea Nitrogen 6 mg/dL (9-23) Creatinine 0.73 mg/dL (0.700-1.30) Glomerular Filtration Rate Calc 127 mL/min (>90) BUN/Creatinine Ratio 8.2 (10.0-20.0) Serum Glucose 183 mg/dL (74-106) Lactic Acid Level 1.5 mmol/L (0.4-2.0) Calcium Level 9.4 mg/dL (8.7-10.4) Urine Color Yellow (Yellow) Urine Clarity Clear (Clear) Urine pH 8.0 (5.0-9.0) Urine Specific [place] > 1.050 (1.001-1.035) Urine Protein Trace (Negative) Urine Ketones 1+ (Negative) Urine Blood Negative /uL (Negative) Urine Nitrite Negative (Negative) Urine Bilirubin Negative (Negative) Urine Urobilinogen Normal mg/dL (Negative) Urine Leukocyte Esterase Negative /uL (Negative) Urine RBC 1 /hpf (0 - 3) Urine Microscopic WBC < 1 /HPF (0-3) Urine Squamous Epithelial Cells None seen /hpf (<5) Urine Bacteria None seen /hpf (None Seen) Urine Glucose 4+ mg/dL (Normal) Urine Opiates Screen Neg (NEGATIVE) Urine Fentanyl Screen Neg (NEGATIVE) Urine Barbiturates Screen Neg (NEGATIVE) Urine Phencyclidine Screen Neg (NEGATIVE) Urine Amphetamines Screen Neg (NEGATIVE) Urine Benzodiazepines Screen Neg (NEGATIVE) Urine Cocaine Screen Neg (NEGATIVE) Urine Cannabinoids Screen Neg (NEGATIVE) White Blood Count 5.9 10^3/uL (4.4-10.8) Red Blood Count 4.83 10^6/uL (4.5-5.90) Hemoglobin 14.7 g/dL (13.5-17.5) Hematocrit 42.0 % (41.0-53.0) Mean Corpuscular Volume 86.8 fL (80.0-100.0) Mean Corpuscular Hemoglobin 30.4 pg (28.0-32.0) Mean Corpuscular Hemoglobin Concent 35.0 g/dL (32.0-36.0) Red Cell Distribution Width 13.6 % (11.8-14.3) Platelet Count 94 10^3/uL (140-450) Mean Platelet Volume 8.6 fL (6.9-10.8) Neutrophils (%) (Auto) 78.3 % (37.0-80.0) Lymphocytes (%) (Auto) 14.1 % (10.0-50.0) Monocytes (%) (Auto) 7.2 % (0.0-12.0) Eosinophils (%) (Auto) 0.1 % (0.0-7.0) Basophils (%) (Auto) 0.3 % (0.0-2.0) Neutrophils # (Auto) 4.6 10 ^3/uL (1.6-8.6) Lymphocytes # (Auto) 0.8 10 ^3/uL (0.4-5.4) Monocytes # (Auto) 0.4 10 ^3/uL (0-1.3) Eosinophils # (Auto) 0 10 ^3/uL (0-0.8) Basophils # (Auto) 0 10 ^3/uL (0-0.2) Nucleated Red Blood Cells 0.1 % Phosphorus Level 2.9 mg/dL (2.4-5.1) Magnesium Level 2.3 mg/dL (1.6-2.6) Triglycerides Level 117 mg/dL (< 150) Cholesterol Level 154 mg/dL (< 200) LDL Cholesterol 107 mg/dL (< 100) HDL Cholesterol 38 mg/dL (40-59) Amylase Level 48 U/L (30-118) Vitamin B12 Level 804 pg/mL (211-911) Folic Acid 13.55 ng/mL (>5.38) Test 11/16/24 19:59 Troponin I High Sensitivity < 3 ng/L (</=54) Plasma/Serum Blood Alcohol 4.8 mg/dL (<10) Other Laboratory Tests 11/18/24 14:50 11/17/24 04:42 Brief Hx & Hospital Course: 29Year old male with a known history of chronic alcoholism presented to the hospital with the epigastric pain was so she was nausea and vomiting found to have acute EtOH induced pancreatitis. Patient does have known history of alcoholic pancreatitis in the past has been. Patient does have known history of chronic alcoholism. Patient was seen by GI. Patient was watched for alcohol withdrawal syndrome has been. Patient underwent EGD which shows evidence of grade C erosive esophagitis has been as esophagitis and gastropathy and gastroduodenitis. Patient was cleared by Gastroenterology on Protonix and Carafate which was prescribed. Patient is being discharged under stable condition. Complete alcoholic at NURSING HOME PHYSICIAN was recommended. Patient is currently understand verbalized understanding and agreeable to plan. Condition at Discharge: Stable Final Diagnosis/Problems List 29Year old male with a known history of chronic alcoholism presented to the hospital with the epigastric pain was so she was nausea and vomiting found to have 1. Acute ETOH induced pancreatitis 2. Previous history of alcoholic pancreatitis 3. Pseudocyst of pancreas 4. Lactic acidosis 5. Transaminitis /alcoholic liver disease 6. Chronic alcoholism, watch for alcohol withdrawal syndrome/delirium tremens -advanced diet as tolerated, GI consultation, alcohol abstinence Discharge Disposition: Home SNF Discharge Will this Physician continue t: No Discharge Instruct/Medications Diet: Cardiac 2g Na,low cholest Activity: No Restrictions, As Tolerated Follow Up/Referral: Follow up with the PCP in 1-2 weeks Follow up with the GI doctor Pamela Brannon in 1-2 weeks. Medications: Protonix and Carafate as prescribed. Discharge Statement: "Patient was advised to return to the ER or call 911 if any headaches, dizziness, shortness of breath, chest pain, abdominal pain, bleeding, fevers, or worsening of medical condition. Patient was counseled about treatment plan, medications, possible side effects, patientverbalized understanding. All questions were answered to the best of my ability. This discharge took greater then 30 minutes in planning, reviewing documentation, counseling the patient, and discussing with other team members." ASSESSMENT ASSESSMENT Assessment 29Year old male with a known history of chronic alcoholism presented to the hospital with the epigastric pain was so she was nausea and vomiting found to have 1. Acute ETOH induced pancreatitis 2. Previous history of alcoholic pancreatitis 3. Pseudocyst of pancreas 4. Lactic acidosis 5. Transaminitis /alcoholic liver disease 6. Chronic alcoholism, watch for alcohol withdrawal syndrome/delirium tremens -advanced diet as tolerated, GI consultation, alcohol abstinence Date of Service: Nov 19, 2024 Billing Provider: MALDONADO CHARLES MD Common Visit Codes: [id number] DISCH DAY >30min MALDONADO CHARLES MD Nov 19, 2024 15:34
== END 2024-11-19 19:10 | disposition home or self-care (01) | DRG 282 ==
LOC: EDBD 18:57 → ER 18:57 → OVERFLOW 23:50 → TELE-WESTW 11-17 14:33
PROVIDERS: ADMIT Internal Medicine; ATTEND Internal Medicine
PROC: 0DB98ZX Excision of Duodenum, Via Natural or Artificial Opening Endoscopic, Diagnostic (ICD-10-PCS; 2024-11-19)
PROC: 0DB38ZX Excision of Lower Esophagus, Via Natural or Artificial Opening Endoscopic, Diagnostic (ICD-10-PCS; 2024-11-19)
PROC: 0DB68ZX Excision of Stomach, Via Natural or Artificial Opening Endoscopic, Diagnostic (ICD-10-PCS; principal; 2024-11-19 14:22)
DX: K85.20 Alcohol induced acute pancreatitis without necrosis or infection (principal); E87.20 Acidosis, unspecified; E72.20 Disorder of urea cycle metabolism, unspecified; K70.10 Alcoholic hepatitis without ascites; K22.10 Ulcer of esophagus without bleeding; K76.0 Fatty (change of) liver, not elsewhere classified; I10 Essential (primary) hypertension; K29.20 Alcoholic gastritis without bleeding; F10.239 Alcohol dependence with withdrawal, unspecified; E83.42 Hypomagnesemia; K86.3 Pseudocyst of pancreas; K44.9 Diaphragmatic hernia without obstruction or gangrene; E78.5 Hyperlipidemia, unspecified; K31.9 Disease of stomach and duodenum, unspecified; E86.0 Dehydration; K29.90 Gastroduodenitis, unspecified, without bleeding
CPT/HCPCS: 36415; 43239; 74178; 76705; 80053; 80061; 80076; 80307; 80320; 81001; 82140; 82150; 82607; 82728; 82746; 83605; 83690; 83735; 84100; 84484; 85025; 85610; 96361; 96374; 96375; G0378; J2405; J2470; J2704; J3480